=== PATIENT | male | born 1975 | race Caucasian/White ===

== ENCOUNTER 2017-06-07 11:30 | Inpatient (IN) | payer OTHER ==
[2017-06-07 12:19] LABS: Hematocrit 41 % (42-52); Hemoglobin 13.8 g/dl (14.0-18.0); Mean Corpuscular HGB Conc 34 g/dl (31-36); Mean Corpuscular Hemoglobin 28 pg (27-31); Mean Corpuscular Volume 81 fL (80-94); Mean Platelet Volume 7 um3 (7.4-10.4); Red Blood Count 5.03 10^6/ul (4.0-5.4); Red Cell Distribution Width 13 % (10.5-15); White Blood Count 6.2 10^3/ul (3.5-10.8)
[2017-06-07 12:23] LABS: Urine Bilirubin Negative (Negative); Urine Glucose Negative (Negative); Urine Nitrite Negative (Negative)
[2017-06-07 12:29] LABS: ALT 10 U/L (7-52); AST 16 U/L (13-39); Albumin 4.5 g/dL (3.2-5.2); Alkaline Phosphatase 49 U/L (34-104); Anion Gap 6 mmol/L (2-11); BUN/Creatinine Ratio 15.2 (8-20); Blood Urea Nitrogen 17 mg/dL (6-24); CO2 Carbon Dioxide 29 mmol/L (22-32); Calcium 8.9 mg/dL (8.6-10.3); Chloride 102 mmol/L (101-111); EGFR African American 93.9 (>60); Globulin 2.5 g/dL (2-4); Glucose 95 mg/dL (70-100); Potassium 3.7 mmol/L (3.5-5.0); Sodium 137 mmol/L (133-145)
--- NOTE | 2017-06-07 12:32 | ED ---
Psychiatric Complaint - HPI Summary HPI Summary: Patient presents with worsening depression and anxiety symptoms since leaving [facility] program. He has been dealing with anxiety and depression since grade school and has continually worsened. Mother is at bedtime and stating he has not gotten out of bed for several days. He notes to anxiety, depression, agorophobia, SI and recent self -harm (september) with cutting his throat. He takes Klonopin, Remeron, Trazodone, Suboxone, Cymbalta and Melatonin. Dr. Orantes is PCP and distributes his suboxone ([phone]) , Dr. Love ([phone] ) is psychiatrist. He has close follow up but felt this episode was too emergent. He would like some help and is here voluntarily - History Of Current Complaint Chief Complaint: [facility]entalHealth Time Seen by Provider: 06/07/17 11:40 Hx Obtained From: Patient Onset/Duration: Gradual Onset Timing: Constant Severity Initially: Severe Severity Currently: Severe Character: Depressed, Fearful, Anxious Aggravating Factor(s): Nothing Alleviating Factor(s): Medication, Counseling Associated Signs And Symptoms: Positive: Sleep Disturbance, Appetite Change, Social Withdrawal, Social Isolation Related History: Positive For: Prior Psychiatric Issues Has Suicidal: Reports: Thoughts, With A Plan - several plans, nothing today in particular - Risk Factor(s) Completed Suicide Risk Factors: Male, White [place] - Allergies/Home Medications Allergies/Adverse Reactions: Allergies Allergy/AdvReac Type Severity Reaction Status Date / Time No Known Allergies Allergy Verified 06/07/17 11:34 PMH/Surg Hx/FS Hx/Imm Hx Previously Healthy: Yes - Immunization History Hx Pertussis Vaccination: No Immunizations Up to Date: Unable to Obtain/Confirm Infectious Disease History: No Infectious Disease History: Denies: Traveled Outside the [place] in Last 30 Days - Social History Alcohol Use: None Substance Use Type: Reports: Prescribed, Other Substance Use Comment - Amount & Last Used: suboxone Smoking Status (MU): Never Smoked Tobacco Review of Systems Constitutional: Negative Eyes: Negative Cardiovascular: Negative Respiratory: Negative Positive: no symptoms reported, see HPI Positive: Arthralgia - chronic back pain Neurological: Negative Positive: Anxious, Depressed All Other Systems Reviewed And Are Negative: Yes Physical Exam Triage Information Reviewed: Yes Vital Signs On Initial Exam: Initial Vitals Temp Pulse Resp BP Pulse Ox 98 F 112 16 123/97 98 06/07/17 11:34 06/07/17 11:34 06/07/17 11:34 06/07/17 11:34 06/07/17 11:34 Vital Signs Reviewed: Yes Appearance: Positive: Well-Appearing, Well-Nourished Skin: Positive: Warm, Skin Color Reflects Adequate Perfusion Head/Face: Positive: Normal Head/Face Inspection Eyes: Positive: EOMI, YNES, Conjunctiva Clear Neck: Positive: Supple, No Lymphadenopathy Respiratory/Lung Sounds: Positive: Clear to Auscultation, Breath Sounds Present Cardiovascular: Positive: Normal, RRR, Pulses are Symmetrical in both Upper and Lower Extremities Musculoskeletal: Positive: Normal, Strength/ROM Intact Neurological: Positive: Sensory/Motor Intact, Alert, Oriented to Person Place, Time, Speech Normal Psychiatric: Positive: Normal AVPU Assessment: Alert - Katerin Coma Scale Coma Scale Total: 15 Diagnostics - Vital Signs Vital Signs Temp Pulse Resp BP Pulse Ox 06/07/17 11:51 99.8 F 92 20 111/69 97 06/07/17 11:34 98 F 112 16 123/97 98 - Laboratory Lab Results: Lab Results 06/07/17 06/07/17 Range/Units 12:00 12:00 WBC 6.2 (3.5-10.8) 10^3/ul RBC 5.03 (4.0-5.4) 10^6/ul Hgb 13.8 L (14.0-18.0) g/dl Hct 41 L (42-52) % MCV 81 (80-94) fL MCH 28 (27-31) pg MCHC 34 (31-36) g/dl RDW 13 (10.5-15) % Plt Count 206 (150-450) 10^3/ul MPV 7 L (7.4-10.4) um3 Neut % (Auto) 43.4 (38-83) % Lymph % (Auto) 43.7 (25-47) % [place] % (Auto) 9.4 H (1-9) % Eos % (Auto) 2.6 (0-6) % Baso % (Auto) 0.9 (0-2) % Absolute Neuts (auto) 2.7 (1.5-7.7) 10^3/ul Absolute Lymphs (auto) 2.7 (1.0-4.8) 10^3/ul Absolute Monos (auto) 0.6 (0-0.8) 10^3/ul Absolute Eos (auto) 0.2 (0-0.6) 10^3/ul Absolute Basos (auto) 0.1 (0-0.2) 10^3/ul Absolute Nucleated RBC 0.01 10^3/ul Nucleated RBC % 0.2 Urine Color Yellow Urine Appearance Clear Urine pH 5.0 (5-9) Ur Specific [place] 1.027 (1.010-1.030) Urine Protein Negative (Negative) Urine Ketones Negative (Negative) Urine Blood Negative (Negative) Urine Nitrate Negative (Negative) Urine Bilirubin Negative (Negative) Urine Urobilinogen Negative (Negative) Ur Leukocyte Esterase Negative (Negative) Urine Glucose Negative (Negative) Result Diagrams: 06/07/17 12:00 Lab Statement: Any lab studies that have been ordered have been reviewed, and results considered in the medical decision making process. Course/Dx - Course Course Of Treatment: Patient is evaluated for anxiety and depression. He denies any current pain. Endorses SI. Course of treatment includes [facility]. Patient sent to [facility] for eval. - Differential Dx/Clinical Impression Differential Diagnosis/HQI/PQRI: Positive: Anxiety, Suicide Attempt, Suicidal Ideation, Suicidal Gesture Provider Diagnosis: Suicidal ideation, Depression Discharge - Discharge Plan Condition: Stable Disposition: ADMITTED TO [facility] Discharge Disposition Comment: [facility]
[2017-06-07 12:37] LABS: Benzodiazepine Urine Screen None Detected (None Detect)
[2017-06-07 12:46] LABS: Acetaminophen < 15 mcg/mL; Alcohol < 10 mg/dL (<10); Salicylate < 2.50 mg/dL (<30)
[2017-06-07 12:51] LABS: TSH (Thyroid Stimulating Horm) 2.09 mcIU/mL (0.34-5.60)
[2017-06-07] MEDS ORDERED: Nicotine Inhaler* 10 MG AMP INH PRN (14:10)
[2017-06-07] MEDS ORDERED: Nicotine GUM* 2 MG PO PRN (14:10)
[2017-06-07] MEDS ORDERED: traZODone TAB* 100 MG PO SCH (21:00)
[2017-06-08] MEDS: Buprenorphine/Naloxone 8-2 MG SL TAB* 1 TAB PO SCH (08:33)
[2017-06-08] MEDS: DULoxetine DR CAP* 30 MG CAP.DR PO SCH (08:34)
--- NOTE | 2017-06-08 11:22 | HP ---
H&P (Free Text) History and Physical: HPI: ---- Patient is a 41yo male with PPHx significant for MDD, R, Panic disorder, Agoraphobia, Opioid use d/o, in Suboxone program, and Alcohol use d/o, sustained remission. Patient presents to the [facility] reporting worsening anxiety and depressive symptoms over the last 6 weeks since graduating from the [facility] inpatient rehab program. Patient reports frequency and intensity of panic attacks and worsening agoraphobic symptoms as well since leaving [facility] and moving home with his mom. Patient can not identify any possible triggers. He reports diminished mood, poor sleep, low energy, low motivation, crying spells, dropping interest in doing things that normally bring him pleasure, SI w/o plan, and agoraphobia symptoms including significant rise in anxiety when leaving is house, avoiding leaving the house, and recent periods of going days without leaving the house. 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 Patient has had 2 falls with head trauma and LOC. Patient reports his first occurred 5yrs ago when his dog went between his legs during a walk, patient reports he fell straight back striking the back of his head on concrete, unable to brace his fall with his arms. Patient reports his second occurred 3yrs ago due to an episode of Sciatic N. pain causing his leg to give and him fall. Patient reports striking the side of his head on a brick building with LOC. Patient reports since the last TBI, he has been told by family and friends that he is not as outgoing, has had a change in his sense of humor(less sarcastic), and no longer shows passion in playing music or pool. Patient reports hx of 3 suicide attempts, last in 09/2016 due to intractable panic patient cut his neck while shaving with a straight blade razor. This was patient's 2nd time attempting via cutting his neck, both requiring hospitalization. He reports compliance with his current psychotropic med regimen: Cymbalta, Remeron , Trazodone, and Klonopin, but admission UDS in (-) for Benzos. Will iSTOP. Patient is in Suboxone therapy currently with Dr. Orantes, will call to confirm with prescriber. Patient reports no current abuse of alcohol. Patient denies use of illicit substances. Patient reports no traumas in childhood. He reports no symptoms of psychosis, nor were any elicited on interview. Past Psych Hx: Inpt - Patient reports >10 admissions, including multiple admissions to [place] , [facility], and [facility]. His last was 1 year ago at [facility]. Outpt - Seen at [facility] Pt receive services at [facility].by psychiatrist - #[phone] and therapist - Maria Isabel Currently in Suboxone program of Dr. Orantes#[phone] for 6 weeks now. Patient receives outpt substance abuse therapy at [facility]. Psychotropic med hx - Cymbalts, Remeron, Trazodone, Klonopin, Xanax Suicide attempt Hx / SIB Hx: Patient reports 3 suicide attempts, last in 09/2016 due to intractable panic patient cut his neck while shaving with a straight blade razor. This was patient 's 2nd time attempting via cutting his neck, both requiring hospitalization. Patient graduated from the [facility] inpatient rehab program 6 weeks ago, for opioid and alcohol use d/o issues. Patient is in Suboxone therapy currently with Dr. Orantes. Patient receives outpt substance abuse therapy at [facility]. Substance Hx: Patient reports no current abuse of alcohol. Patient reports last abuse at 30yo. 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 Patient reports he was started Opioid pain pills due to chronic back pain over 10yrs ago. He reports in early 2015 his doctor's office was shutdown and he stopped. Patient reports months later he was introduced to snorting heroin by a friend who also had severe back pain. He reports he very quickly went to daily use and then to increasing money towards getting the drug, then to stealing from his family to get the drug. Patient reports he never did IV heroin. He reports interventions from his family got him into the [facility] detox center and from there he was admitted to [facility] and graduated from that program 6 weeks ago. Patient reports he has been in the Suboxone program of Dr. Orantes#[phone] for 6 weeks now. Patient denies use of other illicit substances. Medical Hx: -Chronic back pain -TBI in 2013 and 2011 s/p falls with head trauma and LOC. Patient reports ED presentations for both and (-)CTs for both. -Klonopin w/d seizure hx Allergies: --------- NKDA Family Hx: -Patient reports mom and many on mom's side of the family have anxiety disorders and many are agoraphobic. -Patient reports dad and many on dad's side of the family have severe alcohol use disorder symptoms. -Patient reports no knowledge of anyone on mom or dad's side of the family attempting or completing suicide. 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 -Currently unemployed -On disability -Lives with his mother -Reports no firearms in the home -Reports no stockpiles of old pills in the home VITALS: Vital Signs (72 hours) 06/07/17 06/07/17 06/07/17 11:34 11:51 14:08 Temperature 98 F 99.8 F 98.2 F Pulse Rate 112 92 85 Respiratory 16 20 16 Rate Blood Pressure 123/97 111/69 140/80 (mmHg) O2 Sat by Pulse 98 97 Oximetry 06/07/17 06/07/17 06/07/17 15:59 16:41 19:27 Temperature 97.7 F 97.7 F Pulse Rate 89 89 Respiratory 16 16 Rate Blood Pressure 124/85 124/85 (mmHg) O2 Sat by Pulse 99 99 Oximetry 06/08/17 06/08/17 06/08/17 07:48 08:33 10:33 Temperature 97.5 F Pulse Rate 64 Respiratory 15 16 16 Rate Blood Pressure 88/63 (mmHg) O2 Sat by Pulse 99 Oximetry 06/08/17 06/08/17 21:13 21:15 Temperature Pulse Rate 90 Respiratory 18 Rate Blood Pressure 117/78 (mmHg) O2 Sat by Pulse 100 Oximetry LABS: ----- Laboratory Tests 06/07/17 06/07/17 06/07/17 12:00 12:00 12:00 WBC 6.2 RBC 5.03 Hgb 13.8 L Hct 41 L MCV 81 MCH 28 MCHC 34 RDW 13 Plt Count 206 MPV 7 L Neut % (Auto) 43.4 Lymph % (Auto) 43.7 [place] % (Auto) 9.4 H Eos % (Auto) 2.6 Baso % (Auto) 0.9 Absolute Neuts (auto) 2.7 Absolute Lymphs (auto) 2.7 Absolute Monos (auto) 0.6 Absolute Eos (auto) 0.2 Absolute Basos (auto) 0.1 Absolute Nucleated RBC 0.01 Nucleated RBC % 0.2 Sodium 137 Potassium 3.7 Chloride 102 Carbon Dioxide 29 Anion Gap 6 BUN 17 Creatinine 1.12 Est GFR ( Amer) 93.9 Est GFR (Non-Af Amer) 73.0 BUN/Creatinine Ratio 15.2 Glucose 95 Calcium 8.9 Total Bilirubin 0.40 AST 16 ALT 10 Alkaline Phosphatase 49 Total Protein 7.0 Albumin 4.5 Globulin 2.5 Albumin/Globulin Ratio 1.8 TSH 2.09 Urine Color Yellow Urine Appearance Clear Urine pH 5.0 Ur Specific [place] 1.027 Urine Protein Negative Urine Ketones Negative Urine Blood Negative Urine Nitrate Negative Urine Bilirubin Negative Urine Urobilinogen Negative Ur Leukocyte Esterase Negative Urine Glucose Negative Salicylates < 2.50 Urine Opiates Screen Acetaminophen < 15 Ur Barbiturates Screen Ur Phencyclidine Scrn Ur Amphetamines Screen U Benzodiazepines Scrn Urine Cocaine Screen U Cannabinoids Screen Serum Alcohol < 10 06/07/17 12:00 WBC RBC Hgb Hct MCV MCH MCHC RDW Plt Count MPV Neut % (Auto) Lymph % (Auto) [place] % (Auto) Eos % (Auto) Baso % (Auto) Absolute Neuts (auto) Absolute Lymphs (auto) Absolute Monos (auto) Absolute Eos (auto) Absolute Basos (auto) Absolute Nucleated RBC Nucleated RBC % Sodium Potassium Chloride Carbon Dioxide Anion Gap BUN Creatinine Est GFR ( Amer) Est GFR (Non-Af Amer) BUN/Creatinine Ratio Glucose Calcium Total Bilirubin AST ALT Alkaline Phosphatase Total Protein Albumin Globulin Albumin/Globulin Ratio TSH Urine Color Urine Appearance Urine pH Ur Specific [place] Urine Protein Urine Ketones Urine Blood Urine Nitrate Urine Bilirubin Urine Urobilinogen Ur Leukocyte Esterase Urine Glucose Salicylates Urine Opiates Screen None detected Acetaminophen Ur Barbiturates Screen None detected Ur Phencyclidine Scrn None detected Ur Amphetamines Screen None detected U Benzodiazepines Scrn None detected Urine Cocaine Screen None detected U Cannabinoids Screen None detected Serum Alcohol PHYSICAL EXAM: GEN - thin build male, in NAD, looks stated age, multiple skin tattoos including face, neck and hands HEENT - NC/AT, EOEMI, no lesions or discharge noted, conjunctivae clear NECK - supple, no JVD, no LAD, CARDIAC - S1/S2, no discernable murmurs ABD - (+) BS x 4 quad, non-tender EXT - no edema, no lesions MUSCULOSKEL - 5/5 muscle strength in all extremities SKIN - intact, no lesions NEURO - CN 2-12, steady gait MSE: ----- Appearance - thin build male, facial, neck and hand tattoos, fair hygeine, in NAD Behavior - calm, cooperative Speech - RVR, prosody wnl Eye Contact - good Mood - "anxious" Affect - anxious TP - linear and GD TC - treating anxiety Perception - no signs of psychosis noted or reported Orientation - A&Ox3 Cognition - intact Insight - poor to fair Judgement - poor to fair SI / HI - SI present on admission, currently denies both ASSESSMENT: 1. MDD, R, S w/o PFs 2. Panic disorder 3. Agoraphobia 4. Opioid use d/o, in Suboxone program 5. Alcohol use d/o, sustained remission PLAN: ------ 1. Continue admission to [facility] for safety and symptom mx. 2. Continue Cymbalta at increased dose of 90mg po qdaily for mood / anxiety. 3. Re-start home Klonopin 0.5mg po BID. Patient has hx of withdrawal seizure. Patient currently does not have Benzos in urine, but he reports recent use. 4. iSTOP patient. 5. Patient is in Suboxone therapy currently with Dr. Orantes, will call to confirm with prescriber. Continue home dose Suboxone 8mg SL daily. 6. Re-start home Remeron 30mg po qhs as patient reports it has benefitted his anxiety. 7. Re-start home Trazodone at 150mg po qhs for recent worsening insomnia while on 100mg qhs dose. 8. Continue compiling collateral information from family and outpt MH providers. 9. Patient to participate in milieu activities and groups.
[2017-06-08] MEDS: traZODone TAB* 100 MG PO SCH (21:15)
[2017-06-08] MEDS: clonazePAM TAB(*) 0.5 MG PO SCH (21:15)
[2017-06-08] MEDS: Mirtazapine TAB* 15 MG PO SCH (21:17)
[2017-06-09] MEDS: DULoxetine DR CAP* 30 MG CAP.DR PO SCH (09:11)
[2017-06-09] MEDS: Buprenorphine/Naloxone 8-2 MG SL TAB* 1 TAB PO SCH (09:12)
[2017-06-09] MEDS: clonazePAM TAB(*) 0.5 MG PO SCH (09:12)
--- NOTE | 2017-06-09 17:07 | PN ---
Subjective - Subjective Service Type: [id number] Hosp care 15 min low complexity Subjective: Patient in his bed sitting up on my approach. He reports increased acuity milieu prompted his retreat to his room. Patient reports participation in some groups. He reports anxiety is unchanged from admission. Patient reports med compliance with no s/e's. He reports sleep and appetite are wnl. Patient denies SI/HI and AH/VH. Objective - Appearance Appearance: Well Developed/Nourished, Thin Framed Dysmorphic Features: No Hygiene: Normal Grooming: Well Kept - Behavior Psychomotor Activities: Normal Exhibits Abnormal Movement: No - Attitude and Relatedness Attitude and Relatedness: Cooperative Eye Contact: Poor - Speech Quality: Unpressured Latencies: Normal Quantity: Terse - Mood Patient's Decription of Mood: "Anxious" - Affect Observed Affect: Tense Affect Consistent with: Dysphoria - Thought Process Patient's Thought Process: Coherent Thought Content: No Passive Wish, No Suicidal Planning, No Homicidal Ideation, No Paranoid Ideation - Sensorium Experiencing Hallucinations: No, Sensorium is Clear Type of Hallucinations: Visual: No, Auditory: No, Command: No - Level of Consciousness Level of Consciousness: Alert Orientation: Yes Intact, Yes Orientated to Time, Yes Orientated to Place, Yes Orientated to Person - Impulse Control Impulse Control: Intact - Insight and Judgement Insight and Judgement: Fair - Group Participation Particating in Group Activities: Yes - Medication Management Medication Management Adherence: Yes Assessment - Assessment Inpatient DSM-IV Dx: 1. MDD, R, S w/o PFs. 2. Panic disorder. 3. Agoraphobia. 4. Opioid use d/o, in Suboxone program. 5. Alcohol use d/o, sustained remission. 9. Patient to participate in milieu activities and groups. Plan - Plan Treatment Plan: Name: ANTONIO KENNEDY Birthdate: 1975 [id number] PLAN: ------ 1. Continue admission to [facility] for safety and symptom mx. 2. Continue Cymbalta at increased dose of 90mg po qdaily for mood / anxiety. 3. Increase Klonopin from 0.5mg to 1mg po BID. Patient has hx of withdrawal seizure. Patient currently does not have Benzos in urine, but he reports recent use. 4. iSTOP patient. 5. Patient is in Suboxone therapy currently with Dr. Orantes, will call to confirm with prescriber. Continue home dose Suboxone 8mg SL daily. 6. Continue Remeron 30mg po qhs as patient reports it has benefitted his anxiety. 7. Continue Trazodone at 150mg po qhs for recent worsening insomnia while on 100mg qhs dose at home. 8. Continue compiling collateral information from family and outpt providers. Medications: Current Medications Buprenorphine/Naloxone (Suboxone 8-2 Mg Sl Tab*) 1 tab.sl PO DAILY [facility] Last Admin: 06/09/17 09:12 Dose: 1 tab.sl Clonazepam (Klonopin Tab(*)) 0.5 mg PO BID [facility] Last Admin: 06/09/17 09:12 Dose: 0.5 mg Duloxetine HCl (Cymbalta Cap*) 90 mg PO DAILY [facility] Last Admin: 06/09/17 09:11 Dose: 90 mg Mirtazapine (Remeron Tab*) 30 mg PO BEDTIME [facility] Last Admin: 06/08/17 21:17 Dose: 30 mg Nicotine (Nicotine Inhaler*) 10 mg INH Q2H PRN PRN Reason: CRAVING Nicotine Polacrilex (Nicotine Gum*) 2 mg PO Q2H PRN PRN Reason: CRAVING Trazodone HCl (Desyrel Tab*) 150 mg PO BEDTIME [facility] Last Admin: 06/08/17 21:15 Dose: 150 mg - Discharge Plan Discharge Plan: Outpatient Follow Up
[2017-06-09] MEDS: Mirtazapine TAB* 15 MG PO SCH (20:30)
[2017-06-09] MEDS: traZODone TAB* 100 MG PO SCH (20:31)
[2017-06-09] MEDS: clonazePAM TAB(*) 1 MG PO SCH (20:35)
[2017-06-10] MEDS: clonazePAM TAB(*) 1 MG PO SCH ×2 (08:15→20:06)
[2017-06-10] MEDS: Buprenorphine/Naloxone 8-2 MG SL TAB* 1 TAB PO SCH (08:15)
[2017-06-10] MEDS: DULoxetine DR CAP* 30 MG CAP.DR PO SCH (08:16)
--- NOTE | 2017-06-10 16:49 | PN ---
Subjective - Subjective Service Type: 51802 Hosp care 15 min low complexity Subjective: Patient resting in his room. Says he's currently avoiding the milieu due to anxiety. Denies current SI, feels safe on the unit. Denies current complaints. Objective - Appearance Appearance: Well Developed/Nourished Dysmorphic Features: No Hygiene: Normal Grooming: Well Kept - Behavior Psychomotor Activities: Normal Exhibits Abnormal Movement: No - Attitude and Relatedness Attitude and Relatedness: Cooperative Eye Contact: Fair - Speech Quality: Unpressured Latencies: Normal Quantity: Appropriate - Mood Patient's Decription of Mood: "Anxious" - Affect Observed Affect: Constricted Affect Consistent with: Dysphoria - Thought Process Patient's Thought Process: Coherent Thought Content: No Passive Wish, No Suicidal Planning, No Homicidal Ideation, No Paranoid Ideation - Sensorium Experiencing Hallucinations: No, Sensorium is Clear Type of Hallucinations: Visual: No, Auditory: No, Command: No - Level of Consciousness Level of Consciousness: Alert Orientation: Yes Intact, Yes Orientated to Time, Yes Orientated to Place, Yes Orientated to Person - Impulse Control Impulse Control: Tenuous - Insight and Judgement Insight and Judgement: Fair - Group Participation Particating in Group Activities: Yes - Medication Management Medication Management Adherence: Yes Assessment - Assessment Merits Inpatient Hospitalization: For Immediate Safety, For Stabilization Inpatient DSM-IV Dx: 1. MDD, R, S w/o PFs. 2. Panic disorder. 3. Agoraphobia. 4. Opioid use d/o, in Suboxone program. 5. Alcohol use d/o, sustained remission. 9. Patient to participate in milieu activities and groups. Clinical Impression: 41 y.o. white male with a history of MDD, panic do and agoraphobia, along with opioid use disorder admitted for worsening anxiety and passive SI. Plan - Plan Treatment Plan: Name: ANTONIO KENNEDY Birthdate: 1975 [id number] Patient on suboxone, mirtazapine, duloxetine, trazodone and clonazepam therapies. Continue inpatient treatment. Continued Medication Management: Different Medication Medications: Current Medications Buprenorphine/Naloxone (Suboxone 8-2 Mg Sl Tab*) 1 tab.sl PO DAILY [facility] Last Admin: 06/10/17 08:15 Dose: 1 tab.sl Clonazepam (Klonopin Tab(*)) 1 mg PO BID [facility] Last Admin: 06/10/17 08:15 Dose: 1 mg Duloxetine HCl (Cymbalta Cap*) 90 mg PO DAILY [facility] Last Admin: 06/10/17 08:16 Dose: 90 mg Mirtazapine (Remeron Tab*) 30 mg PO BEDTIME [facility] Last Admin: 06/09/17 20:30 Dose: 30 mg Nicotine (Nicotine Inhaler*) 10 mg INH Q2H PRN PRN Reason: CRAVING Nicotine Polacrilex (Nicotine Gum*) 2 mg PO Q2H PRN PRN Reason: CRAVING Trazodone HCl (Desyrel Tab*) 150 mg PO BEDTIME [facility] Last Admin: 06/09/17 20:31 Dose: 150 mg - Discharge Plan Discharge Plan: Inpatient Hospitalization
[2017-06-10] MEDS: Mirtazapine TAB* 15 MG PO SCH (20:05)
[2017-06-10] MEDS: traZODone TAB* 100 MG PO SCH (20:06)
[2017-06-11] MEDS: clonazePAM TAB(*) 1 MG PO SCH ×2 (08:18→20:13)
[2017-06-11] MEDS: DULoxetine DR CAP* 30 MG CAP.DR PO SCH (08:18)
[2017-06-11] MEDS: Buprenorphine/Naloxone 8-2 MG SL TAB* 1 TAB PO SCH (08:18)
[2017-06-11] MEDS: Mirtazapine TAB* 15 MG PO SCH (20:12)
[2017-06-11] MEDS: traZODone TAB* 100 MG PO SCH (20:12)
[2017-06-12] MEDS: clonazePAM TAB(*) 1 MG PO SCH ×2 (08:26→20:31)
[2017-06-12] MEDS: DULoxetine DR CAP* 30 MG CAP.DR PO SCH (08:26)
[2017-06-12] MEDS: Buprenorphine/Naloxone 8-2 MG SL TAB* 1 TAB PO SCH (08:26)
--- NOTE | 2017-06-12 11:19 | PN ---
Subjective - Subjective Service Type: [id number] Hosp care 15 min low complexity Subjective: Patient lying in his bed on my approach. Patient reports benefit to his anxiety on current psychotropic med regimen. Patient reports sleep and appetite are wnl. Patient reports compliance with groups, but reports the acuity of the milieu drives him to his room. Patient denies SI/HI and AH/VH. Patient denies med s/e's. Objective - Appearance Appearance: Thin Framed Dysmorphic Features: No Hygiene: Normal Grooming: Well Kept - Behavior Psychomotor Activities: Normal Exhibits Abnormal Movement: No - Attitude and Relatedness Attitude and Relatedness: Cooperative Eye Contact: Fair - Speech Quality: Unpressured Latencies: Normal Quantity: Appropriate - Mood Patient's Decription of Mood: "Anxious" - Affect Observed Affect: Fair Affect Consistent with: Euthymia - Thought Process Patient's Thought Process: Coherent Thought Content: No Passive Wish, No Suicidal Planning, No Homicidal Ideation, No Paranoid Ideation - Sensorium Experiencing Hallucinations: No, Sensorium is Clear Type of Hallucinations: Visual: No, Auditory: No, Command: No - Level of Consciousness Level of Consciousness: Alert Orientation: Yes Intact, Yes Orientated to Time, Yes Orientated to Place, Yes Orientated to Person - Impulse Control Impulse Control: Intact - Insight and Judgement Insight and Judgement: Fair - Group Participation Particating in Group Activities: Yes - Medication Management Medication Management Adherence: Yes Assessment - Assessment Merits Inpatient Hospitalization: For Immediate Safety, For Stabilization Inpatient DSM-IV Dx: 1. MDD, R, S w/o PFs. 2. Panic disorder. 3. Agoraphobia. 4. Opioid use d/o, in Suboxone program. 5. Alcohol use d/o, sustained remission. 9. Patient to participate in milieu activities and groups. Plan - Plan Treatment Plan: Name: ANTONIO KENNEDY Birthdate: 1975 [id number] PLAN: ------ 1. Continue admission to [facility] for safety and symptom mx. 2. Continue Cymbalta at increased dose of 90mg po qdaily for mood / anxiety. 3. Continue Klonopin 1mg po BID. Patient has hx of withdrawal seizure. Patient currently does not have Benzos in urine, but he reports recent use. 4. iSTOP patient. 5. Continue home dose Suboxone 8mg SL daily. Patient is in Suboxone therapy currently with Dr. Orantes. 6. Continue Remeron 30mg po qhs as patient reports it has benefitted his anxiety. 7. Continue Trazodone at 150mg po qhs for recent worsening insomnia while on 100mg qhs dose at home. 8. Continue compiling collateral information from family and outpt providers. Medications: Current Medications Buprenorphine/Naloxone (Suboxone 8-2 Mg Sl Tab*) 1 tab.sl PO DAILY [facility] Last Admin: 06/12/17 08:26 Dose: 1 tab.sl Clonazepam (Klonopin Tab(*)) 1 mg PO BID [facility] Last Admin: 06/12/17 08:26 Dose: 1 mg Duloxetine HCl (Cymbalta Cap*) 90 mg PO DAILY [facility] Last Admin: 06/12/17 08:26 Dose: 90 mg Mirtazapine (Remeron Tab*) 30 mg PO BEDTIME [facility] Last Admin: 06/11/17 20:12 Dose: 30 mg Nicotine (Nicotine Inhaler*) 10 mg INH Q2H PRN PRN Reason: CRAVING Nicotine Polacrilex (Nicotine Gum*) 2 mg PO Q2H PRN PRN Reason: CRAVING Trazodone HCl (Desyrel Tab*) 150 mg PO BEDTIME [facility] Last Admin: 06/11/17 20:12 Dose: 150 mg - Discharge Plan Discharge Plan: Outpatient Follow Up
--- NOTE | 2017-06-12 11:54 | PN ---
MHU: Group Therapy Note - Service Type Service Type: [id number] Group Psychotherapy - Cognitive Behavioral Group Therapy ( CBT):Patient was attentive and participatory in CBT programming this morning, and remained in good behavioral control. Patient expressed positive insights regarding relevant treatment interventions and goals.
[2017-06-12] MEDS: diPHENhydraMINE PO* 50 MG PO SCH (20:30)
[2017-06-12] MEDS: traZODone TAB* 100 MG PO SCH (20:30)
[2017-06-12] MEDS: Mirtazapine TAB* 15 MG PO SCH (20:31)
[2017-06-13] MEDS: DULoxetine DR CAP* 30 MG CAP.DR PO SCH (08:24)
[2017-06-13] MEDS: clonazePAM TAB(*) 1 MG PO SCH ×2 (08:24→20:41)
[2017-06-13] MEDS: Buprenorphine/Naloxone 8-2 MG SL TAB* 1 TAB PO SCH (08:24)
[2017-06-13] MEDS ORDERED: DULoxetine DR CAP* 60 MG CAP.DR PO SCH (11:00)
--- NOTE | 2017-06-13 11:21 | PN ---
Subjective - Subjective Service Type: 17138 Hosp care 15 min low complexity Subjective: Patient again lying in his bed on my approach. He reports improving anxiety but reports ongoing issues socializing in the milieu. Patient reports he did go to every group today and reports gaining beneficial insights on his anxiety and understanding how anxiety paralyzes. Patient is amenable to an increase in Duloxetine. Patient informed 120mg po daily is the max dose for this med. Patient reports med compliance and denies med s/e's. Patient reports no DUKE, CP, Abd pain. He reports urination and bowel movements are wnl. Patient reports ongoing improving mood. He again denies SI/HI and AH/VH. Appetite and sleep are fair. Objective - Appearance Appearance: Thin Framed Dysmorphic Features: No Hygiene: Normal Grooming: Fairly Well Kept - Behavior Psychomotor Activities: Normal Exhibits Abnormal Movement: No - Attitude and Relatedness Attitude and Relatedness: Cooperative Eye Contact: Fair - Speech Quality: Unpressured Latencies: Normal Quantity: Appropriate - Mood Patient's Decription of Mood: "Anxious" - Affect Observed Affect: Fair Affect Consistent with: Euthymia - Thought Process Patient's Thought Process: Coherent Thought Content: No Passive Wish, No Suicidal Planning, No Homicidal Ideation, No Paranoid Ideation - Sensorium Experiencing Hallucinations: No, Sensorium is Clear Type of Hallucinations: Visual: No, Auditory: No, Command: No - Level of Consciousness Level of Consciousness: Alert Orientation: Yes Intact, Yes Orientated to Time, Yes Orientated to Place, Yes Orientated to Person - Impulse Control Impulse Control: Intact - Insight and Judgement Insight and Judgement: Fair - Group Participation Particating in Group Activities: Yes - Medication Management Medication Management Adherence: Yes Assessment - Assessment Merits Inpatient Hospitalization: For Immediate Safety, For Stabilization Inpatient DSM-IV Dx: 1. MDD, R, S w/o PFs. 2. Panic disorder. 3. Agoraphobia. 4. Opioid use d/o, in Suboxone program. 5. Alcohol use d/o, sustained remission. 9. Patient to participate in milieu activities and groups. Plan - Plan Treatment Plan: Name: ANTONIO KENNEDY Birthdate: 1975 [id number] PLAN: ------ 1. Continue admission to [facility] for safety and symptom mx. 2. Increase Cymbalta from 90mg to max dose of 120mg po qdaily for mood / anxiety. 3. Continue Klonopin 1mg po BID. Patient has hx of withdrawal seizure. Patient currently does not have Benzos in urine, but he reports recent use. 4. iSTOP patient. 5. Continue home dose Suboxone 8mg SL daily. Patient is in Suboxone therapy currently with Dr. Orantes. 6. Continue Remeron 30mg po qhs as patient reports it has benefitted his anxiety. 7. Continue Trazodone at 150mg po qhs for recent worsening insomnia while on 100mg qhs dose at home. 8. Continue compiling collateral information from family and outpt providers. Medications: Current Medications Buprenorphine/Naloxone (Suboxone 8-2 Mg Sl Tab*) 1 tab.sl PO DAILY [facility] Last Admin: 06/13/17 08:24 Dose: 1 tab.sl Clonazepam (Klonopin Tab(*)) 1 mg PO BID [facility] Last Admin: 06/13/17 08:24 Dose: 1 mg Diphenhydramine HCl (Benadryl Po*) 50 mg PO BEDTIME [facility] Last Admin: 06/12/17 20:30 Dose: 50 mg Duloxetine HCl (Cymbalta Cap*) 120 mg PO DAILY [facility] Mirtazapine (Remeron Tab*) 30 mg PO BEDTIME [facility] Last Admin: 06/12/17 20:31 Dose: 30 mg Nicotine (Nicotine Inhaler*) 10 mg INH Q2H PRN PRN Reason: CRAVING Last Admin: 06/12/17 10:40 Dose: 10 mg Nicotine Polacrilex (Nicotine Gum*) 2 mg PO Q2H PRN PRN Reason: CRAVING Last Admin: 06/12/17 10:40 Dose: 2 mg Trazodone HCl (Desyrel Tab*) 150 mg PO BEDTIME [facility] Last Admin: 06/12/17 20:30 Dose: 150 mg - Discharge Plan Discharge Plan: Outpatient Follow Up
--- NOTE | 2017-06-13 13:06 | PN ---
MHU: Group Therapy Note - Service Type Service Type: [id number] Group Psychotherapy - Cognitive Behavioral Group Therapy ( CBT):Patient was attentive and participatory in CBT programming this morning, and remained in good behavioral control. Patient expressed positive insights regarding relevant treatment interventions and goals.
[2017-06-13] MEDS: diPHENhydraMINE PO* 50 MG PO SCH (20:40)
[2017-06-13] MEDS: Mirtazapine TAB* 15 MG PO SCH (20:40)
[2017-06-13] MEDS: traZODone TAB* 100 MG PO SCH (20:41)
[2017-06-14] MEDS: clonazePAM TAB(*) 1 MG PO SCH (08:37)
[2017-06-14] MEDS: Buprenorphine/Naloxone 8-2 MG SL TAB* 1 TAB PO SCH (08:37)
[2017-06-14 10:07] VITALS: BP 108/70
--- NOTE | 2017-06-14 11:40 | PN ---
MHU: Group Therapy Note - Service Type Service Type: [id number] Group Psychotherapy - Cognitive Behavioral Group Therapy ( CBT):Patient was attentive and participatory in CBT programming this morning, and remained in good behavioral control. Patient expressed positive insights regarding relevant treatment interventions and goals.
--- NOTE | 2017-06-14 14:13 | DS ---
Subjective - Subjective Service Types: [id number] Hosp DC Day Mgmt simple under 30 min Subjective: Patient noted to be more visible today in the milieu. Patient noted to be social with peers and attended some groups. Patient reports ongoing improved anxiety. He reports no panic attacks since admission. Patient reports good benefit on current med regimen, he denies med s/e's. Patient reports feeling ready for discharge. Patient is A&Ox4, linear and GD in TP, and future oriented in TC. Patient reports interest in increasing the time he spends with friends and out socializing. Patient again denies SI/ HI and AH/VH. Patient is psychiatrically stable. Discharge plan has been discussed and patient is amenable and acknowledges understanding. Patient instructed to call the crisis hotline, 911, or self present to a local ED if SI recurs. Patient was amenable and acknowledged understanding of family and community supports. Patient will be discharged by cab to his mother's home. Mom reports she feels comfortable with patient discharging back to her home. Objective - Appearance Appearance: Thin Framed Dysmorphic Features: No Hygiene: Normal Grooming: Fairly Well Kept - Behavior Psychomotor Activities: Normal Exhibits Abnormal Movement: No - Attitude and Relatedness Attitude and Relatedness: Cooperative Eye Contact: Fair - Speech Quality: Unpressured Latencies: Normal Quantity: Appropriate - Mood Patient's Decription of Mood: "Okay" - Affect Observed Affect: Fair Affect Consistent with: Euthymia - Thought Process Patient's Thought Process: Coherent Thought Content: No Passive Wish, No Suicidal Planning, No Homicidal Ideation, No Paranoid Ideation - Sensorium Experiencing Hallucinations: No, Sensorium is Clear Type of Hallucinations: Visual: No, Auditory: No, Command: No - Level of Consciousness Level of Consciousness: Alert Orientation: Yes Intact, Yes Orientated to Time, Yes Orientated to Place, Yes Orientated to Person - Impulse Control Impulse Control: Intact - Insight and Judgement Insight and Judgement: Fair - Group Participation Particating in Group Activities: Yes - Medication Management Medication Management Adherence: Yes Treatment Course & Assessment Clinical Course & Impression: HOSPITAL COURSE: Patient is a 41yo male with PPHx significant for MDD, R, Panic disorder, Agoraphobia, Opioid use d/o, in Suboxone program, and Alcohol use d/o, sustained remission. Patient presents to the [facility] reporting worsening anxiety and depressive symptoms over the last 6 weeks since graduating from the [facility] inpatient rehab program. Patient reports frequency and intensity of panic attacks and worsening agoraphobic symptoms as well since leaving [facility] and moving home with his mom. Patient can not identify any possible triggers. He reports diminished mood, poor sleep, low energy, low motivation, crying spells, dropping interest in doing things that normally bring him pleasure, SI w/o plan, and agoraphobia symptoms including significant rise in anxiety when leaving is house, avoiding leaving the house, and recent periods of going days without leaving the house. 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 Patient has had 2 falls with head trauma and LOC. Patient reports his first occurred 5yrs ago when his dog went between his legs during a walk, patient reports he fell straight back striking the back of his head on concrete, unable to brace his fall with his arms. Patient reports his second occurred 3yrs ago due to an episode of Sciatic N. pain causing his leg to give and him fall. Patient reports striking the side of his head on a brick building with LOC. Patient reports since the last TBI, he has been told by family and friends that he is not as outgoing, has had a change in his sense of humor(less sarcastic), and no longer shows passion in playing music or pool. Patient reports hx of 3 suicide attempts, last in 09/2016 due to intractable panic patient cut his neck while shaving with a straight blade razor. This was patient's 2nd time attempting via cutting his neck, both requiring hospitalization. He reports compliance with his current psychotropic med regimen: Cymbalta, Remeron , Trazodone, and Klonopin. Patient is in Suboxone therapy currently with Dr. Orantes, will call to confirm with prescriber. Patient reports no current abuse of alcohol. Patient denies use of illicit substances. Patient reports no traumas in childhood. He reports no symptoms of psychosis, nor were any elicited on interview. On admission, patient's home dose Cymbalta was increased from 60mg to 90mg po qdaily for mood / anxiety. Home dose Klonopin 0.5mg po BID was continued. Patient has Patient is in Suboxone therapy currently with Dr. Orantes, and home dose Suboxone 8mg SL daily was continued. Home dose Remeron 30mg po qhs and Trazodone were re-started. Trazodone was re-started at 150mg po qhs for recent worsening insomnia while on home dose of 100mg. Patient noted to display agoraphobic symptoms on admission day 1. Clonazepam was increased from 0.5 po BID to 1mg po BID for those symptoms and to facility engagement in therapy. Patient's anxiety improved daily. On admission day 5, patient's Cymbalta increased from 90mg to max dose 120mg po daily for anxiety/mood. Patient showed increased participation in groups, was noted to be visible in the milieu more, and noted to be more social following. On day of discharge, patient reported ongoing improved anxiety. He reports no panic attacks since admission. Patient reports good benefit on current med regimen, he denies med s/e's. Patient reports feeling ready for discharge. Patient is A&Ox4, linear and GD in TP, and future oriented in TC. Patient reports interest in increasing the time he spends with friends and out socializing. Patient again denies SI/ HI and AH/VH. Patient is psychiatrically stable. Discharge plan has been discussed and patient is amenable and acknowledges understanding. Patient instructed to call the crisis hotline, 911, or self present to a local ED if SI recurs. Patient was amenable and acknowledged understanding of family and community supports. Patient will be discharged by cab to his mother's home. Mom reports she feels comfortable with patient discharging back to her home. PERTINENT LABS: Laboratory Tests 06/07/17 06/07/17 06/07/17 12:00 12:00 12:00 WBC 6.2 RBC 5.03 Hgb 13.8 L Hct 41 L MCV 81 MCH 28 MCHC 34 RDW 13 Plt Count 206 MPV 7 L Neut % (Auto) 43.4 Lymph % (Auto) 43.7 [place] % (Auto) 9.4 H Eos % (Auto) 2.6 Baso % (Auto) 0.9 Absolute Neuts (auto) 2.7 Absolute Lymphs (auto) 2.7 Absolute Monos (auto) 0.6 Absolute Eos (auto) 0.2 Absolute Basos (auto) 0.1 Absolute Nucleated RBC 0.01 Nucleated RBC % 0.2 Sodium 137 Potassium 3.7 Chloride 102 Carbon Dioxide 29 Anion Gap 6 BUN 17 Creatinine 1.12 Est GFR ( Amer) 93.9 Est GFR (Non-Af Amer) 73.0 BUN/Creatinine Ratio 15.2 Glucose 95 Calcium 8.9 Total Bilirubin 0.40 AST 16 ALT 10 Alkaline Phosphatase 49 Total Protein 7.0 Albumin 4.5 Globulin 2.5 Albumin/Globulin Ratio 1.8 TSH 2.09 Urine Color Yellow Urine Appearance Clear Urine pH 5.0 Ur Specific [place] 1.027 Urine Protein Negative Urine Ketones Negative Urine Blood Negative Urine Nitrate Negative Urine Bilirubin Negative Urine Urobilinogen Negative Ur Leukocyte Esterase Negative Urine Glucose Negative Salicylates < 2.50 Urine Opiates Screen Acetaminophen < 15 Ur Barbiturates Screen Ur Phencyclidine Scrn Ur Amphetamines Screen U Benzodiazepines Scrn Urine Cocaine Screen U Cannabinoids Screen Serum Alcohol < 10 06/07/17 12:00 WBC RBC Hgb Hct MCV MCH MCHC RDW Plt Count MPV Neut % (Auto) Lymph % (Auto) [place] % (Auto) Eos % (Auto) Baso % (Auto) Absolute Neuts (auto) Absolute Lymphs (auto) Absolute Monos (auto) Absolute Eos (auto) Absolute Basos (auto) Absolute Nucleated RBC Nucleated RBC % Sodium Potassium Chloride Carbon Dioxide Anion Gap BUN Creatinine Est GFR ( Amer) Est GFR (Non-Af Amer) BUN/Creatinine Ratio Glucose Calcium Total Bilirubin AST ALT Alkaline Phosphatase Total Protein Albumin Globulin Albumin/Globulin Ratio TSH Urine Color Urine Appearance Urine pH Ur Specific [place] Urine Protein Urine Ketones Urine Blood Urine Nitrate Urine Bilirubin Urine Urobilinogen Ur Leukocyte Esterase Urine Glucose Salicylates Urine Opiates Screen None detected Acetaminophen Ur Barbiturates Screen None detected Ur Phencyclidine Scrn None detected Ur Amphetamines Screen None detected U Benzodiazepines Scrn None detected Urine Cocaine Screen None detected U Cannabinoids Screen None detected Serum Alcohol Consultants: none Discharge Meds: Home Medications Medication Instructions Recorded Confirmed Type Buprenorphine/Naloxone SL TAB* 1 tab.sl PO DAILY tab.sl MDD 8-2 06/14/17 Rx [Suboxone 8-2 mg SL TAB*] DULoxetine DR CAP* [Cymbalta CAP*] 120 mg PO DAILY #60 cap 06/14/17 Rx Mirtazapine TAB* [Remeron TAB*] 30 mg PO BEDTIME #60 tab 06/14/17 Rx clonazePAM TAB(*) [Klonopin TAB(*)] 1 mg PO BID #60 tab MDD 2 06/14/17 Rx traZODone TAB* [Desyrel TAB*] 150 mg PO BEDTIME #45 tab 06/14/17 Rx Follow-Up: Appts for within the next 2 weeks scheduled by SW with outpt. provider. Clear for Discharge: Adequate Clinical Respons, Acceptable Safety Profile Inpatient DSM-IV Dx: 1. MDD, R, S w/o PFs. 2. Panic disorder. 3. Agoraphobia. 4. Opioid use d/o, in Suboxone program. 5. Alcohol use d/o, sustained remission. 9. Patient to participate in milieu activities and groups. Discharge Planning - Discharge Planning Discharge Plan: Outpatient Follow Up Recommendations for Continuing Care: Specialty Followup - Patient has follow-up appt scheduled previously with Dr. Orantes, suboxone provider, for tomorrow . Medications: Current Medications Buprenorphine/Naloxone (Suboxone 8-2 Mg Sl Tab*) 1 tab.sl PO DAILY [facility] Last Admin: 06/14/17 08:37 Dose: 1 tab.sl Clonazepam (Klonopin Tab(*)) 1 mg PO BID [facility] Last Admin: 06/14/17 08:37 Dose: 1 mg Diphenhydramine HCl (Benadryl Po*) 50 mg PO BEDTIME [facility] Last Admin: 06/13/17 20:40 Dose: 50 mg Duloxetine HCl (Cymbalta Cap*) 120 mg PO DAILY [facility] Last Admin: 06/14/17 08:37 Dose: 120 mg Mirtazapine (Remeron Tab*) 30 mg PO BEDTIME [facility] Last Admin: 06/13/17 20:40 Dose: 30 mg Nicotine (Nicotine Inhaler*) 10 mg INH Q2H PRN PRN Reason: CRAVING Last Admin: 06/12/17 10:40 Dose: 10 mg Nicotine Polacrilex (Nicotine Gum*) 2 mg PO Q2H PRN PRN Reason: CRAVING Last Admin: 06/12/17 10:40 Dose: 2 mg Trazodone HCl (Desyrel Tab*) 150 mg PO BEDTIME [facility] Last Admin: 06/13/17 20:41 Dose: 150 mg Discharge Planning: Prescriptions provided for discharge [x] Yes [] No Follow up care details as per social work arrangements. Patient response to discharge plan: [] eager for discharge [x] agreeable with discharge plan [] ambivalent about discharge [] disagrees with discharge today
== END 2017-06-14 14:00 | disposition home or self-care (01) | DRG 751 ==
LOC: ED 11:30 → BSU 14:12
PROVIDERS: ADMIT Psychiatry & Neurology Psychiatry; ATTEND Psychiatry & Neurology Psychiatry
PROC: GZHZZZZ Group Psychotherapy (ICD-10-PCS; principal; 2017-06-13)
DX: F33.2 Major depressive disorder, recurrent severe without psychotic features (principal); F40.01 Agoraphobia with panic disorder; F11.90 Opioid use, unspecified, uncomplicated; G47.00 Insomnia, unspecified; G89.29 Other chronic pain; M54.9 Dorsalgia, unspecified; Z87.820 Personal history of traumatic brain injury; Z72.89 Other problems related to lifestyle; Z91.5 Personal history of self-harm; Z81.8 Family history of other mental and behavioral disorders; Z81.1 Family history of alcohol abuse and dependence
CPT/HCPCS: 36415; 80053; 80307; 80320; 80329; 81003; 84443; 85025; 90853; 99222; 99231; 99238; A9270-GY; G0480

== ENCOUNTER 2017-07-24 16:51 | Emergency (ER) | payer OTHER ==
[2017-07-24 17:30] LABS: Hematocrit 43 % (42-52); Hemoglobin 14.8 g/dl (14.0-18.0); Mean Corpuscular HGB Conc 34 g/dl (31-36); Mean Corpuscular Hemoglobin 28 pg (27-31); Mean Corpuscular Volume 82 fL (80-94); Mean Platelet Volume 7 um3 (7.4-10.4); Red Blood Count 5.28 10^6/ul (4.0-5.4); Red Cell Distribution Width 14 % (10.5-15); White Blood Count 7.5 10^3/ul (3.5-10.8)
[2017-07-24 17:34] LABS: Urine Bilirubin Negative (Negative); Urine Glucose Negative (Negative); Urine Nitrite Negative (Negative)
[2017-07-24 17:43] LABS: ALT 8 U/L (7-52); AST 15 U/L (13-39); Albumin 4.8 g/dL (3.2-5.2); Alkaline Phosphatase 43 U/L (34-104); Anion Gap 9 mmol/L (2-11); BUN/Creatinine Ratio 11.1 (8-20); Blood Urea Nitrogen 13 mg/dL (6-24); CO2 Carbon Dioxide 27 mmol/L (22-32); Calcium 9.4 mg/dL (8.6-10.3); Chloride 103 mmol/L (101-111); EGFR African American 89.3 (>60); EGFR Non-African American 69.4 (>60); Globulin 2.7 g/dL (2-4); Glucose 103 mg/dL (70-100); Potassium 3.4 mmol/L (3.5-5.0); Sodium 139 mmol/L (133-145); Total Protein 7.5 g/dL (6.4-8.9)
[2017-07-24 17:47] LABS: Benzodiazepine Urine Screen None Detected (None Detect)
[2017-07-24 18:11] LABS: Acetaminophen < 15 mcg/mL; Alcohol < 10 mg/dL (<10); Salicylate < 2.50 mg/dL (<30)
--- NOTE | 2017-07-24 18:12 | ED ---
Psychiatric Complaint - HPI Summary HPI Summary: Pt here w/ progressing anxiety, panic d/o and agoraphobia. Does not feel safe at home so called mom who picked him up 4 days ago. Hasn't been eating much - she's been offering food to make sure he eats. He is worried about harming himself as he's had a h/o cutting his throat - doesn't recall details as she states his mind was racing at the time. 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 He is currently taking suboxone which prevents cravings. Also takes benton Love: clonazepam (not working as well over the past few months), trazodone, mirtazapine and duloxetine. Denies physical complaints at this time other than feeling exhausted from constant anxiety w/o known cause. - History Of Current Complaint Chief Complaint: EDMentalHealth Time Seen by Provider: 07/24/17 17:07 Hx Obtained From: Patient, Family/Steam Table Associate - mom - anxiety and depression since young child - worried about him harming himself - Allergies/Home Medications Allergies/Adverse Reactions: Allergies Allergy/AdvReac Type Severity Reaction Status Date / Time Seasonal Allergies Allergy Mild Congestion Uncoded 06/07/17 20:48 Home Medications: Home Medications Suboxone 4-1 mg 4 mg PO QPM 07/24/17 [History Confirmed 07/24/17] Suboxone 8-2 mg 8 mg PO QAM 07/24/17 [History Confirmed 07/24/17] PMH/Surg Hx/FS Hx/Imm Hx Previously Healthy: Yes Endocrine/Hematology History: Denies: Hx Thyroid Disease, Hx Anemia Cardiovascular History: Denies: Hx Congenital Heart Disease, Hx Hypotension, Hx Hypertension Musculoskeletal History: Reports: Hx Back Problems - pt reports chronic back pain Sensory History: Denies: Hx Contacts or Glasses, Hx Hearing Aid Opthamlomology History: Denies: Hx Contacts or Glasses Neurological History: Reports: Other Neuro Impairments/Disorders - hx of concussions Psychiatric History: Reports: Hx Anxiety, Hx Depression, Hx Inpatient Treatment , Hx Suicide Attempt - Two prior attempts, Hx Substance Abuse - Narcotics/ Heroin - currently on suboxone Denies: Hx Eating Disorder, Hx of Violent Episodes Against Others Infectious Disease History: No Infectious Disease History: Denies: Traveled Outside the [place] in Last 30 Days - Social History Occupation: Disabled Lives: Alone Alcohol Use: None Alcohol Amount: hasn't drank in years - no previous addiction per pt Hx Substance Use: Yes - on suboxone currently Substance Use Type: Reports: Heroin, Prescribed Substance Use Comment - Amount & Last Used: Addicted to pain medication and then was using heroin prior to going rehab Hx Tobacco Use: No Smoking Status (MU): Never Smoked Tobacco Amount Used/How Often: Never used tobacco Length of Time of Smoking/Using Tobacco: never used tobacco Review of Systems Positive: Fatigue. Negative: Fever, Chills Eyes: Negative ENT: Negative Cardiovascular: Negative Negative: Chest Pain Respiratory: Negative Negative: Shortness Of Breath Gastrointestinal: Negative Negative: Abdominal Pain, Vomiting, Diarrhea, Nausea Positive: no symptoms reported Musculoskeletal: Negative Skin: Negative Neurological: Negative Psychological: Other - see HPI All Other Systems Reviewed And Are Negative: Yes Physical Exam Triage Information Reviewed: Yes Vital Signs On Initial Exam: Initial Vitals Temp Pulse Resp BP Pulse Ox 97.8 F 87 19 130/98 100 07/24/17 16:56 07/24/17 16:56 07/24/17 16:56 07/24/17 16:56 07/24/17 16:56 Vital Signs Reviewed: Yes Appearance: Positive: Well-Appearing, No Pain Distress, Well-Nourished Skin: Positive: Warm, Dry Head/Face: Positive: Normal Head/Face Inspection Eyes: Positive: Normal, EOMI, YNES, Conjunctiva Clear ENT: Positive: Normal ENT inspection, Hearing grossly normal, Pharynx normal - mucosa moist Respiratory/Lung Sounds: Positive: Clear to Auscultation, Breath Sounds Present. Negative: Rales, Rhonchi, Wheezes Cardiovascular: Positive: Normal, RRR, S1, S2 Abdomen Description: Positive: Nontender, No Organomegaly, Soft Bowel Sounds: Positive: Present Musculoskeletal: Positive: Normal, Strength/ROM Intact Neurological: Positive: Normal, Sensory/Motor Intact, Alert, Oriented to Person Place, Time, CN Intact II-III Psychiatric: Positive: Other - blunted affect, low mood, low voice but is responsive in timely fashion, calm and cooperative - no physical signs of agitation Diagnostics - Vital Signs Vital Signs Temp Pulse Resp BP Pulse Ox 07/24/17 16:56 97.8 F 87 19 130/98 100 - Laboratory Lab Results: Lab Results 07/24/17 07/24/17 07/24/17 Range/Units 17:14 17:14 17:18 WBC (3.5-10.8) 10^3/ul RBC (4.0-5.4) 10^6/ul Hgb (14.0-18.0) g/dl Hct (42-52) % MCV (80-94) fL MCH (27-31) pg MCHC (31-36) g/dl RDW (10.5-15) % Plt Count (150-450) 10^3/ul MPV (7.4-10.4) um3 Neut % (Auto) (38-83) % Lymph % (Auto) (25-47) % [place] % (Auto) (1-9) % Eos % (Auto) (0-6) % Baso % (Auto) (0-2) % Absolute Neuts (auto) (1.5-7.7) 10^3/ul Absolute Lymphs (auto) (1.0-4.8) 10^3/ul Absolute Monos (auto) (0-0.8) 10^3/ul Absolute Eos (auto) (0-0.6) 10^3/ul Absolute Basos (auto) (0-0.2) 10^3/ul Absolute Nucleated RBC 10^3/ul Nucleated RBC % Sodium 139 (133-145) mmol/L Potassium 3.4 L (3.5-5.0) mmol/L Chloride 103 (101-111) mmol/L Carbon Dioxide 27 (22-32) mmol/L Anion Gap 9 (2-11) mmol/L BUN 13 (6-24) mg/dL Creatinine 1.17 (0.67-1.17) mg/dL Est GFR ( Amer) 89.3 (>60) Est GFR (Non-Af Amer) 69.4 (>60) BUN/Creatinine Ratio 11.1 (8-20) Glucose 103 H (70-100) mg/dL Calcium 9.4 (8.6-10.3) mg/dL Total Bilirubin 0.50 (0.2-1.0) mg/dL AST 15 (13-39) U/L ALT 8 (7-52) U/L Alkaline Phosphatase 43 (34-104) U/L Total Protein 7.5 (6.4-8.9) g/dL Albumin 4.8 (3.2-5.2) g/dL Globulin 2.7 (2-4) g/dL Albumin/Globulin Ratio 1.8 (1-3) TSH Pending Urine Color Yellow Urine Appearance Cloudy Urine pH 6.0 (5-9) Ur Specific [place] 1.025 (1.010-1.030) Urine Protein Negative (Negative) Urine Ketones Negative (Negative) Urine Blood Negative (Negative) Urine Nitrate Negative (Negative) Urine Bilirubin Negative (Negative) Urine Urobilinogen Negative (Negative) Ur Leukocyte Esterase Negative (Negative) Urine Glucose Negative (Negative) Salicylates Pending Urine Opiates Screen None detected (None Detect) Acetaminophen Pending Ur Barbiturates Screen None detected (None Detect) Ur Phencyclidine Scrn None detected (None Detect) Ur Amphetamines Screen None detected (None Detect) U Benzodiazepines Scrn None detected (None Detect) Urine Cocaine Screen None detected (None Detect) U Cannabinoids Screen None detected (None Detect) Serum Alcohol Pending 07/24/17 Range/Units 17:18 WBC 7.5 (3.5-10.8) 10^3/ul RBC 5.28 (4.0-5.4) 10^6/ul Hgb 14.8 (14.0-18.0) g/dl Hct 43 (42-52) % MCV 82 (80-94) fL MCH 28 (27-31) pg MCHC 34 (31-36) g/dl RDW 14 (10.5-15) % Plt Count 246 (150-450) 10^3/ul MPV 7 L (7.4-10.4) um3 Neut % (Auto) 47.5 (38-83) % Lymph % (Auto) 41.8 (25-47) % [place] % (Auto) 6.7 (1-9) % Eos % (Auto) 3.4 (0-6) % Baso % (Auto) 0.6 (0-2) % Absolute Neuts (auto) 3.6 (1.5-7.7) 10^3/ul Absolute Lymphs (auto) 3.1 (1.0-4.8) 10^3/ul Absolute Monos (auto) 0.5 (0-0.8) 10^3/ul Absolute Eos (auto) 0.3 (0-0.6) 10^3/ul Absolute Basos (auto) 0 (0-0.2) 10^3/ul Absolute Nucleated RBC 0.01 10^3/ul Nucleated RBC % 0.1 Sodium (133-145) mmol/L Potassium (3.5-5.0) mmol/L Chloride (101-111) mmol/L Carbon Dioxide (22-32) mmol/L Anion Gap (2-11) mmol/L BUN (6-24) mg/dL Creatinine (0.67-1.17) mg/dL Est GFR ( Amer) (>60) Est GFR (Non-Af Amer) (>60) BUN/Creatinine Ratio (8-20) Glucose (70-100) mg/dL Calcium (8.6-10.3) mg/dL Total Bilirubin (0.2-1.0) mg/dL AST (13-39) U/L ALT (7-52) U/L Alkaline Phosphatase (34-104) U/L Total Protein (6.4-8.9) g/dL Albumin (3.2-5.2) g/dL Globulin (2-4) g/dL Albumin/Globulin Ratio (1-3) TSH Urine Color Urine Appearance Urine pH (5-9) Ur Specific [place] (1.010-1.030) Urine Protein (Negative) Urine Ketones (Negative) Urine Blood (Negative) Urine Nitrate (Negative) Urine Bilirubin (Negative) Urine Urobilinogen (Negative) Ur Leukocyte Esterase (Negative) Urine Glucose (Negative) Salicylates Urine Opiates Screen (None Detect) Acetaminophen Ur Barbiturates Screen (None Detect) Ur Phencyclidine Scrn (None Detect) Ur Amphetamines Screen (None Detect) U Benzodiazepines Scrn (None Detect) Urine Cocaine Screen (None Detect) U Cannabinoids Screen (None Detect) Serum Alcohol Result Diagrams: 07/24/17 17:18 07/24/17 17:18 Lab Statement: Any lab studies that have been ordered have been reviewed, and results considered in the medical decision making process. Course/Dx - Course Course Of Treatment: Spoke w/ SYDNIE Naidu - to evaluate once other folks are completed after 23:00. Pt's mom aware and charge nurse aware pt needs place out of hallway as he has agoraphobia. Signed out to Joanie Madison PA-C at shift change. - Differential Dx/Clinical Impression Provider Diagnosis: Suicidal ideation, Anxiety, Depression Discharge - Discharge Plan Condition: Guarded Disposition: OTHER Discharge Disposition Comment: signed out Referrals: Rolanda GREEN,Timmy Banuelos [Primary Care Provider] -
[2017-07-24 18:26] LABS: TSH (Thyroid Stimulating Horm) 3.22 mcIU/mL (0.34-5.60)
[2017-07-24] MEDS ORDERED: traZODone TAB* 50 MG TAB PO ONE (20:01)
[2017-07-24] MEDS ORDERED: Mirtazapine TAB* 15 MG PO ONE (20:01)
[2017-07-24] MEDS ORDERED: clonazePAM TAB(*) 1 MG PO ONE (20:01)
[2017-07-24] MEDS ORDERED: Buprenorphine TAB* 2 MG TAB.SL SL ONE (20:05)
[2017-07-24] MEDS ORDERED: clonazePAM TAB(*) 0.5 MG PO ONE (22:00)
--- NOTE | 2017-07-25 02:51 | PN ---
Progress Note - Progress Note Date of Service: 07/24/17 Note: Patient was a sign out from Kerry Ordoñez at shift change pending psych evaluation and disposition. On re-eval RRR and CTA. No complaints. Medically cleared. Still awaiting psych evaluation. No changes were taken while under my care. Signed out to Dr Meadows at shift change still pending psych evaluation and disposition. Kerry did suggest admission due to previous attempts and severe depression. Suicidal thoughts with plan.
[2017-07-25] MEDS ORDERED: LORazepam TAB(*) 1 MG ONE (05:03)
[2017-07-25] MEDS ORDERED: ARIPiprazole TAB* 2 MG PO ONE (06:00)
[2017-07-25] MEDS ORDERED: Potassium Chlor TAB* 20 MEQ TAB.ER PO ONE (11:47)
[2017-07-25] MEDS ORDERED: clonazePAM TAB(*) 1 MG PO ONE (12:00)
[2017-07-25] MEDS ORDERED: Buprenorphine/Naloxone 8-2 MG SL TAB* 1 TAB PO ONE (12:00)
[2017-07-25] MEDS ORDERED: DULoxetine DR CAP* 60 MG CAP.DR PO ONE (12:00)
[2017-07-25 13:04] VITALS: BP 114/75
--- NOTE | 2017-07-25 15:21 | PN ---
ED Flex Patient Progress Note Subjective: This is a 41 year-old M who is pending admission to psychiatric facility secondary to SI . Pt offers no complaints at this time - slept well last night. Requesting morning meds. Objective: Vitals: Most recent vital signs documented below. General NAD, Alert and oriented x3. Lungs: breathing easily PSYCH: calm, cooperative Assessment: 1) SI 2) anxiety 3) opioid dependence Plan: 1) Pending psychiatric admit. Will follow up daily __until admit___. 2) routine meds ordered this morning 3) routine suboxone ordered this morning Vital Signs Temp Pulse Resp BP Pulse Ox 98.2 F 73 18 114/75 99 07/25/17 13:04 07/25/17 13:04 07/25/17 13:04 07/25/17 13:04 07/25/17 13:04 Lab Results - Entire Visit 07/24/17 07/24/17 07/24/17 17:18 17:18 17:14 WBC 7.5 RBC 5.28 Hgb 14.8 Hct 43 MCV 82 MCH 28 MCHC 34 RDW 14 Plt Count 246 MPV 7 L Neut % (Auto) 47.5 Lymph % (Auto) 41.8 [place] % (Auto) 6.7 Eos % (Auto) 3.4 Baso % (Auto) 0.6 Absolute Neuts (auto) 3.6 Absolute Lymphs (auto) 3.1 Absolute Monos (auto) 0.5 Absolute Eos (auto) 0.3 Absolute Basos (auto) 0 Absolute Nucleated RBC 0.01 Nucleated RBC % 0.1 Sodium 139 Potassium 3.4 L Chloride 103 Carbon Dioxide 27 Anion Gap 9 BUN 13 Creatinine 1.17 Est GFR ( Amer) 89.3 Est GFR (Non-Af Amer) 69.4 BUN/Creatinine Ratio 11.1 Glucose 103 H Calcium 9.4 Total Bilirubin 0.50 AST 15 ALT 8 Alkaline Phosphatase 43 Total Protein 7.5 Albumin 4.8 Globulin 2.7 Albumin/Globulin Ratio 1.8 TSH 3.22 Urine Color Yellow Urine Appearance Cloudy Urine pH 6.0 Ur Specific [place] 1.025 Urine Protein Negative Urine Ketones Negative Urine Blood Negative Urine Nitrate Negative Urine Bilirubin Negative Urine Urobilinogen Negative Ur Leukocyte Esterase Negative Urine Glucose Negative Salicylates < 2.50 Urine Opiates Screen Acetaminophen < 15 Ur Barbiturates Screen Ur Phencyclidine Scrn Ur Amphetamines Screen U Benzodiazepines Scrn Urine Cocaine Screen U Cannabinoids Screen Serum Alcohol < 10 07/24/17 17:14 WBC RBC Hgb Hct MCV MCH MCHC RDW Plt Count MPV Neut % (Auto) Lymph % (Auto) [place] % (Auto) Eos % (Auto) Baso % (Auto) Absolute Neuts (auto) Absolute Lymphs (auto) Absolute Monos (auto) Absolute Eos (auto) Absolute Basos (auto) Absolute Nucleated RBC Nucleated RBC % Sodium Potassium Chloride Carbon Dioxide Anion Gap BUN Creatinine Est GFR ( Amer) Est GFR (Non-Af Amer) BUN/Creatinine Ratio Glucose Calcium Total Bilirubin AST ALT Alkaline Phosphatase Total Protein Albumin Globulin Albumin/Globulin Ratio TSH Urine Color Urine Appearance Urine pH Ur Specific [place] Urine Protein Urine Ketones Urine Blood Urine Nitrate Urine Bilirubin Urine Urobilinogen Ur Leukocyte Esterase Urine Glucose Salicylates Urine Opiates Screen None detected Acetaminophen Ur Barbiturates Screen None detected Ur Phencyclidine Scrn None detected Ur Amphetamines Screen None detected U Benzodiazepines Scrn None detected Urine Cocaine Screen None detected U Cannabinoids Screen None detected Serum Alcohol
--- NOTE | 2017-07-25 18:59 | PN ---
Carin Lang SooYoung, scribed for Lamont Castle MD on 07/25/17 at 1652 . Progress Note - Progress Note Date of Service: 07/25/17 Note: COT: Pt was seen by Dr. Barajas, who recommends in-patient services. He spoke with Diane , of the in-patient behavioral unit at [facility] who agrees/ accepts pt for transfer. I spoke to Dr. Seaman, ED doc and discussed the pt, who accepted pt for transport. DX: ANXIETY. SI. DISPO: Stable, transfer. The documentation as recorded by the scribeCarin SooYoung accurately reflects the service I personally performed and the decisions made by , Lamont Castle MD.
== END 2017-07-25 13:04 | disposition home or self-care (01) ==
LOC: ED 16:51
DX: R45.851 Suicidal ideations (principal); F41.8 Other specified anxiety disorders
CPT/HCPCS: 36415; 80053; 80307; 80320; 80329; 81003; 84443; 85025; 99282; A9270-GY; G0480

== ENCOUNTER 2017-09-10 11:09 | Inpatient (IN) | payer OTHER ==
--- NOTE | 2017-09-10 12:39 | ED ---
Psychiatric Complaint - HPI Summary HPI Summary: Patient presents to the ED with CC of suicidal thoughts, anhedonia, social isolation, severe depression and anxiety, agoraphobia, social phobia and drug addiction (most recently opioid). Current medications includes duloxetine 60mhg , mirtazapine 30mg, trazodone 100mg, clonazepam .5mg, suboxone 8mg. Patient has had a long history of SI and 1 year ago made an attempt with cutting his throat. He has been seen here multiple times and is upset regarding the system discharging him without giving him proper care. He is inbetween PCP at the moment. Currently is not using drugs or ETOH. Mother is at bedside and states it has been 8 days and he has not gotten out of bed or eaten. His mother and himself are requesting inpatient to a location and requesting medication change. Previous ED visit he was given ativan with significant improvement of anxiety. - History Of Current Complaint Chief Complaint: EDMentalHealth Time Seen by Provider: 09/10/17 11:23 Hx Obtained From: Patient, Family/Ironer Hand Onset/Duration: Gradual Onset Timing: Constant Severity Initially: Severe Severity Currently: Severe Character: Depressed, Fearful, Anxious, Frustrated Aggravating Factor(s): Nothing Alleviating Factor(s): Medication Associated Signs And Symptoms: Positive: Sleep Disturbance, Appetite Change, Social Withdrawal, Social Isolation Related History: Positive For: Prior Psychiatric Issues Has Suicidal: Reports: Thoughts, Has Prior Attempt(s) - cutting his throat - Risk Factor(s) Completed Suicide Risk Factors: Male, [place] - Allergies/Home Medications Allergies/Adverse Reactions: Allergies Allergy/AdvReac Type Severity Reaction Status Date / Time Seasonal Allergies Allergy Mild Congestion Uncoded 09/10/17 11:19 Home Medications: Home Medications Buprenorphine/Naloxone SL TAB* [Suboxone 8-2 mg SL TAB*] 0.5 tab SL QPM [History Confirmed 09/10/17] Sertraline HCl [Zoloft] 150 mg PO DAILY 09/10/17 [History Confirmed 09/10/17] clonazePAM TAB(*) [Klonopin TAB(*)] 0.5 mg PO TID PRN 09/10/17 [History Confirmed 09/10/17] PMH/Surg Hx/FS Hx/Imm Hx Previously Healthy: Yes Endocrine/Hematology History: Denies: Hx Thyroid Disease, Hx Anemia Cardiovascular History: Denies: Hx Congenital Heart Disease, Hx Hypotension, Hx Hypertension Musculoskeletal History: Reports: Hx Back Problems - pt reports chronic back pain Sensory History: Denies: Hx Contacts or Glasses, Hx Hearing Aid Opthamlomology History: Denies: Hx Contacts or Glasses Neurological History: Reports: Other Neuro Impairments/Disorders - hx of concussions Psychiatric History: Reports: Hx Anxiety, Hx Depression, Hx Inpatient Treatment , Hx Suicide Attempt - Two prior attempts, Hx Substance Abuse - Narcotics/ Heroin - currently on suboxone Denies: Hx Eating Disorder, Hx of Violent Episodes Against Others - Immunization History Hx Pertussis Vaccination: No Immunizations Up to Date: Unable to Obtain/Confirm Infectious Disease History: No Infectious Disease History: Denies: Traveled Outside the [place] in Last 30 Days - Social History Occupation: Unemployed Lives: With Family Alcohol Use: None Alcohol Amount: hasn't drank in years - no previous addiction per pt Hx Substance Use: Yes - on suboxone currently Substance Use Type: Reports: Heroin, Prescribed Substance Use Comment - Amount & Last Used: Addicted to pain medication and then was using heroin prior to going rehab Hx Tobacco Use: No Smoking Status (MU): Never Smoked Tobacco Amount Used/How Often: Never used tobacco Length of Time of Smoking/Using Tobacco: never used tobacco Review of Systems Constitutional: Negative Negative: Fever, Chills, Fatigue, Skin Diaphoresis Eyes: Negative Cardiovascular: Negative Respiratory: Negative Genitourinary: Negative Positive: no symptoms reported, see HPI Musculoskeletal: Negative Neurological: Negative Positive: Anxious, Depressed All Other Systems Reviewed And Are Negative: Yes Physical Exam Triage Information Reviewed: Yes Vital Signs On Initial Exam: Initial Vitals Temp Pulse Resp BP Pulse Ox 98.1 F 88 16 137/87 99 09/10/17 11:19 09/10/17 11:19 09/10/17 11:19 09/10/17 11:19 09/10/17 11:19 Vital Signs Reviewed: Yes Appearance: Positive: Well-Appearing, Well-Nourished Skin: Positive: Warm, Skin Color Reflects Adequate Perfusion Head/Face: Positive: Normal Head/Face Inspection Eyes: Positive: EOMI, YNES, Conjunctiva Clear Neck: Positive: Supple, Nontender, No Lymphadenopathy Respiratory/Lung Sounds: Positive: Clear to Auscultation, Breath Sounds Present Cardiovascular: Positive: Normal, RRR Musculoskeletal: Positive: Strength/ROM Intact Neurological: Positive: Speech Normal Psychiatric: Positive: Normal Diagnostics - Vital Signs Vital Signs Temp Pulse Resp BP Pulse Ox 09/10/17 11:19 98.1 F 88 16 137/87 99 - Laboratory Result Diagrams: 09/10/17 12:37 09/10/17 12:37 Lab Statement: Any lab studies that have been ordered have been reviewed, and results considered in the medical decision making process. Course/Dx - Course Course Of Treatment: Patient is evaluated for SI and previous attempt at suicide with increasing thoughts, anxiety, anhedonia and depression. Mother at bedside. Both requesting inpatient treatment and medication change. He is cleared at this time for MHU. Denies any pain or physical complaints at this time. He is admitted to [facility]. - Differential Dx/Clinical Impression Differential Diagnosis/HQI/PQRI: Positive: Suicide Attempt, Suicidal Ideation, Suicidal Gesture Provider Diagnosis: Suicidal ideation Discharge - Discharge Plan Condition: Stable Disposition: ADMITTED TO [facility] Referrals: Rolanda GREEN,Timmy Banuelos [Primary Care Provider] -
[2017-09-10 13:16] LABS: Hematocrit 43 % (42-52); Hemoglobin 14.6 g/dl (14.0-18.0); Mean Corpuscular HGB Conc 34 g/dl (31-36); Mean Corpuscular Hemoglobin 28 pg (27-31); Mean Corpuscular Volume 82 fL (80-94); Mean Platelet Volume 7 um3 (7.4-10.4); Red Blood Count 5.27 10^6/ul (4.0-5.4); Red Cell Distribution Width 14 % (10.5-15)
[2017-09-10 13:31] LABS: ALT 17 U/L (7-52); AST 18 U/L (13-39); Acetaminophen < 15 mcg/mL; Albumin 4.6 g/dL (3.2-5.2); Alcohol < 10 mg/dL (<10); Alkaline Phosphatase 58 U/L (34-104); Anion Gap 6 mmol/L (2-11); BUN/Creatinine Ratio 13.3 (8-20); Blood Urea Nitrogen 12 mg/dL (6-24); CO2 Carbon Dioxide 29 mmol/L (22-32); Calcium 9.4 mg/dL (8.6-10.3); Chloride 102 mmol/L (101-111); EGFR African American 120.8 (>60); EGFR Non-African American 93.9 (>60); Globulin 2.8 g/dL (2-4); Glucose 99 mg/dL (70-100); Potassium 4.2 mmol/L (3.5-5.0); Salicylate < 2.50 mg/dL (<30); Sodium 137 mmol/L (133-145); Total Protein 7.4 g/dL (6.4-8.9)
[2017-09-10 13:46] LABS: TSH (Thyroid Stimulating Horm) 2.78 mcIU/mL (0.34-5.60)
[2017-09-10 14:59] LABS: Urine Bilirubin Negative (Negative); Urine Glucose Negative (Negative); Urine Nitrite Negative (Negative)
[2017-09-10 15:16] LABS: Benzodiazepine Urine Screen None Detected (None Detect)
[2017-09-10] MEDS ORDERED: Al Hydrox/Mg Hydrox/Simet LIQ* 30 ML UDC PO PRN (17:27)
[2017-09-10] MEDS ORDERED: Acetaminophen TAB* 325 MG PO PRN (17:27)
[2017-09-10] MEDS: hydrOXYzine HCL TAB* 50 MG PO PRN (18:11)
[2017-09-10] MEDS: Buprenorphine/Naloxone 8-2 MG SL TAB* 1 TAB PO SCH (19:58)
[2017-09-10] MEDS ORDERED: Mirtazapine TAB* 15 MG PO SCH (21:00)
[2017-09-11] MEDS: hydrOXYzine HCL TAB* 50 MG PO PRN (08:11)
[2017-09-11] MEDS: Vitamin THERAPEUTIC TAB PO SCH (08:11)
[2017-09-11] MEDS: Buprenorphine/Naloxone 8-2 MG SL TAB* 1 TAB PO SCH ×2 (08:11→20:13)
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
[2017-09-11] MEDS ORDERED: DULoxetine DR CAP* 30 MG CAP.DR PO ONE (15:30)
[2017-09-11] MEDS ORDERED: clonazePAM TAB(*) 1 MG PO ONE (15:30)
[2017-09-11] MEDS: Mirtazapine TAB* 15 MG PO SCH (20:15)
[2017-09-11] MEDS: traZODone TAB* 100 MG PO PRN (20:16)
[2017-09-11] MEDS: clonazePAM TAB(*) 1 MG PO SCH (20:16)
[2017-09-11] MEDS ORDERED: IMIPRAMINE 25 MG PO SCH (21:00)
[2017-09-12] MEDS: Vitamin THERAPEUTIC TAB PO SCH (07:55)
[2017-09-12] MEDS: Buprenorphine/Naloxone 8-2 MG SL TAB* 1 TAB PO SCH ×2 (07:55→20:18)
[2017-09-12] MEDS: DULoxetine DR CAP* 30 MG CAP.DR PO SCH (07:55)
[2017-09-12] MEDS: clonazePAM TAB(*) 1 MG PO SCH ×3 (07:56→20:22)
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
[2017-09-12] MEDS: Mirtazapine TAB* 15 MG PO SCH (20:18)
[2017-09-12] MEDS: traZODone TAB* 100 MG PO PRN (20:22)
[2017-09-12] MEDS ORDERED: IMIPRAMINE 25 MG PO SCH (21:00)
[2017-09-13] MEDS: Buprenorphine/Naloxone 8-2 MG SL TAB* 1 TAB PO SCH ×2 (08:06→20:06)
[2017-09-13] MEDS: DULoxetine DR CAP* 30 MG CAP.DR PO SCH (08:06)
[2017-09-13] MEDS: Vitamin THERAPEUTIC TAB PO SCH (08:07)
[2017-09-13] MEDS: clonazePAM TAB(*) 1 MG PO SCH ×3 (08:09→20:11)
[2017-09-13] MEDS ORDERED: BREXPIPRAZOLE 0.5 MG PO SCH (09:00)
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
[2017-09-13] MEDS: hydrOXYzine HCL TAB* 50 MG PO PRN (15:43)
[2017-09-13] MEDS ORDERED: DULoxetine DR CAP* 20 MG CAP.DR PO ONE (16:14)
[2017-09-13] MEDS: IMIPRAMINE 25 MG PO SCH (20:06)
[2017-09-13] MEDS: Mirtazapine TAB* 15 MG PO SCH (20:06)
[2017-09-13] MEDS: Docusate CAP* 100 MG PO SCH (20:06)
[2017-09-13] MEDS: traZODone TAB* 100 MG PO PRN (20:11)
[2017-09-14] MEDS: Vitamin THERAPEUTIC TAB PO SCH (08:27)
[2017-09-14] MEDS: Buprenorphine/Naloxone 8-2 MG SL TAB* 1 TAB PO SCH ×2 (08:27→20:00)
[2017-09-14] MEDS: Docusate CAP* 100 MG PO SCH ×2 (08:27→20:01)
[2017-09-14] MEDS: CMCS: Brexpiprazole (NF) 0.5 MG TAB PO SCH (08:28)
[2017-09-14] MEDS: clonazePAM TAB(*) 1 MG PO SCH ×3 (08:29→20:03)
[2017-09-14] MEDS ORDERED: DULoxetine DR CAP* 20 MG CAP.DR PO SCH (09:00)
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
[2017-09-14] MEDS: Mirtazapine TAB* 15 MG PO SCH (20:01)
[2017-09-14] MEDS: IMIPRAMINE 25 MG PO SCH (20:02)
[2017-09-14] MEDS: traZODone TAB* 100 MG PO PRN (20:03)
[2017-09-15] MEDS: Buprenorphine/Naloxone 8-2 MG SL TAB* 1 TAB PO SCH ×2 (08:28→20:33)
[2017-09-15] MEDS: Vitamin THERAPEUTIC TAB PO SCH (08:28)
[2017-09-15] MEDS: Docusate CAP* 100 MG PO SCH ×2 (08:29→20:35)
[2017-09-15] MEDS: CMCS: Brexpiprazole (NF) 0.5 MG TAB PO SCH (08:29)
[2017-09-15] MEDS: clonazePAM TAB(*) 1 MG PO SCH ×3 (08:31→20:43)
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
[2017-09-15] MEDS: Mirtazapine TAB* 15 MG PO SCH (20:35)
[2017-09-15] MEDS: IMIPRAMINE 25 MG PO SCH (20:35)
[2017-09-15] MEDS: traZODone TAB* 100 MG PO PRN (20:42)
[2017-09-16] MEDS: Vitamin THERAPEUTIC TAB PO SCH (08:23)
[2017-09-16] MEDS: Docusate CAP* 100 MG PO SCH ×2 (08:23→20:11)
[2017-09-16] MEDS: Buprenorphine/Naloxone 8-2 MG SL TAB* 1 TAB PO SCH ×2 (08:23→20:10)
[2017-09-16] MEDS: CMCS: Brexpiprazole (NF) 0.5 MG TAB PO SCH (08:24)
[2017-09-16] MEDS: clonazePAM TAB(*) 1 MG PO SCH ×3 (08:24→20:11)
[2017-09-16] MEDS: hydrOXYzine HCL TAB* 50 MG PO PRN (11:00)
[2017-09-16] MEDS: IMIPRAMINE 25 MG PO SCH (20:12)
[2017-09-16] MEDS: Mirtazapine TAB* 15 MG PO SCH (20:13)
[2017-09-16] MEDS: traZODone TAB* 100 MG PO PRN (20:13)
[2017-09-17] MEDS: Vitamin THERAPEUTIC TAB PO SCH (08:43)
[2017-09-17] MEDS: CMCS: Brexpiprazole (NF) 0.5 MG TAB PO SCH (08:43)
[2017-09-17] MEDS: Buprenorphine/Naloxone 8-2 MG SL TAB* 1 TAB PO SCH ×2 (08:43→20:02)
[2017-09-17] MEDS: clonazePAM TAB(*) 1 MG PO SCH ×3 (08:44→20:06)
[2017-09-17] MEDS: Docusate CAP* 100 MG PO SCH ×2 (08:45→20:04)
[2017-09-17] MEDS: hydrOXYzine HCL TAB* 50 MG PO PRN (15:07)
[2017-09-17] MEDS: IMIPRAMINE 25 MG PO SCH (20:04)
[2017-09-17] MEDS: traZODone TAB* 100 MG PO PRN (20:04)
[2017-09-17] MEDS: Mirtazapine TAB* 15 MG PO SCH (20:04)
[2017-09-18] MEDS: Vitamin THERAPEUTIC TAB PO SCH (08:14)
[2017-09-18] MEDS: clonazePAM TAB(*) 1 MG PO SCH ×3 (08:14→21:30)
[2017-09-18] MEDS: Docusate CAP* 100 MG PO SCH ×2 (08:14→21:30)
[2017-09-18] MEDS: Buprenorphine/Naloxone 8-2 MG SL TAB* 1 TAB PO SCH (08:15)
[2017-09-18] MEDS: CMCS: Brexpiprazole (NF) 0.5 MG TAB PO SCH (08:15)
[2017-09-18] MEDS: hydrOXYzine HCL TAB* 50 MG PO PRN (12:37)
--- NOTE | 2017-09-18 12:52 | PN ---
[facility]: Group Therapy Note - Service Type Service Type: 99023 Group Psychotherapy - Cognitive Behavioral Group Therapy ( CBT):Patient was attentive and participatory in CBT programming this morning, and remained in good behavioral control. Patient expressed positive insights regarding relevant treatment interventions and goals.
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
[2017-09-18] MEDS: IMIPRAMINE 25 MG PO SCH (21:30)
[2017-09-18] MEDS: traZODone TAB* 100 MG PO PRN (21:31)
[2017-09-18] MEDS ORDERED: Buprenorphine/Naloxone 8-2 MG SL TAB* 1 TAB SL ONE (22:00)
[2017-09-19] MEDS: Buprenorphine/Naloxone 8-2 MG SL TAB* 1 TAB PO SCH (08:20)
[2017-09-19] MEDS: hydrOXYzine HCL TAB* 50 MG PO PRN ×2 (08:20→20:41)
[2017-09-19] MEDS: Docusate CAP* 100 MG PO SCH ×2 (08:20→20:39)
[2017-09-19] MEDS: clonazePAM TAB(*) 1 MG PO SCH ×3 (08:20→20:38)
[2017-09-19] MEDS: Vitamin THERAPEUTIC TAB PO SCH (08:20)
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
[2017-09-19] MEDS: traZODone TAB* 100 MG PO PRN (20:39)
[2017-09-19] MEDS: IMIPRAMINE 25 MG PO SCH (20:39)
[2017-09-20] MEDS: Buprenorphine/Naloxone 8-2 MG SL TAB* 1 TAB PO SCH ×2 (08:09→20:14)
[2017-09-20] MEDS: Docusate CAP* 100 MG PO SCH ×2 (08:10→20:15)
[2017-09-20] MEDS: Vitamin THERAPEUTIC TAB PO SCH (08:10)
[2017-09-20] MEDS: clonazePAM TAB(*) 1 MG PO SCH ×3 (08:12→20:14)
[2017-09-20] MEDS: hydrOXYzine HCL TAB* 50 MG PO PRN ×2 (08:12→20:15)
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
[2017-09-20] MEDS: traZODone TAB* 100 MG PO PRN (20:15)
[2017-09-20] MEDS: IMIPRAMINE 25 MG PO SCH (20:15)
[2017-09-21] MEDS: clonazePAM TAB(*) 1 MG PO SCH ×3 (08:07→21:27)
[2017-09-21] MEDS: Vitamin THERAPEUTIC TAB PO SCH (08:08)
[2017-09-21] MEDS: Buprenorphine/Naloxone 8-2 MG SL TAB* 1 TAB PO SCH ×2 (08:08→20:20)
[2017-09-21] MEDS: Docusate CAP* 100 MG PO SCH ×2 (08:08→20:22)
[2017-09-21] MEDS: hydrOXYzine HCL TAB* 50 MG PO PRN (20:22)
[2017-09-21] MEDS: IMIPRAMINE 25 MG PO SCH (20:24)
[2017-09-21] MEDS: traZODone TAB* 100 MG PO PRN (20:24)
[2017-09-22] MEDS: Vitamin THERAPEUTIC TAB PO SCH (08:31)
[2017-09-22] MEDS: Buprenorphine/Naloxone 8-2 MG SL TAB* 1 TAB PO SCH ×2 (08:31→20:27)
[2017-09-22] MEDS: hydrOXYzine HCL TAB* 50 MG PO PRN ×2 (08:31→20:23)
[2017-09-22] MEDS: Docusate CAP* 100 MG PO SCH ×2 (08:31→20:24)
[2017-09-22] MEDS: clonazePAM TAB(*) 1 MG PO SCH ×3 (08:33→18:14)
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
[2017-09-22] MEDS: traZODone TAB* 100 MG PO PRN (20:23)
[2017-09-22] MEDS: IMIPRAMINE 25 MG PO SCH (20:24)
[2017-09-22] MEDS: Temazepam CAP* 15 MG PO SCH (20:24)
[2017-09-23] MEDS: Buprenorphine/Naloxone 8-2 MG SL TAB* 1 TAB PO SCH ×2 (08:20→20:10)
[2017-09-23] MEDS: Docusate CAP* 100 MG PO SCH ×2 (08:20→20:10)
[2017-09-23] MEDS: Vitamin THERAPEUTIC TAB PO SCH (08:20)
[2017-09-23] MEDS: clonazePAM TAB(*) 1 MG PO SCH ×2 (08:21→16:02)
[2017-09-23] MEDS: hydrOXYzine HCL TAB* 50 MG PO PRN ×2 (08:22→20:13)
[2017-09-23] MEDS: Temazepam CAP* 15 MG PO SCH (20:11)
[2017-09-23] MEDS: IMIPRAMINE 25 MG PO SCH (20:11)
[2017-09-23] MEDS: traZODone TAB* 100 MG PO PRN (20:14)
[2017-09-24] MEDS: Docusate CAP* 100 MG PO SCH ×2 (08:28→20:16)
[2017-09-24] MEDS: clonazePAM TAB(*) 1 MG PO SCH ×2 (08:28→16:18)
[2017-09-24] MEDS: hydrOXYzine HCL TAB* 50 MG PO PRN ×2 (08:28→20:17)
[2017-09-24] MEDS: Buprenorphine/Naloxone 8-2 MG SL TAB* 1 TAB PO SCH ×2 (08:28→20:18)
[2017-09-24] MEDS: Vitamin THERAPEUTIC TAB PO SCH (08:28)
[2017-09-24] MEDS: traZODone TAB* 100 MG PO PRN (20:16)
[2017-09-24] MEDS: Temazepam CAP* 15 MG PO SCH (20:17)
[2017-09-24] MEDS: IMIPRAMINE 25 MG PO SCH (20:19)
[2017-09-25] MEDS: hydrOXYzine HCL TAB* 50 MG PO PRN (07:44)
[2017-09-25] MEDS: Docusate CAP* 100 MG PO SCH (07:45)
[2017-09-25] MEDS: Vitamin THERAPEUTIC TAB PO SCH (07:45)
[2017-09-25] MEDS: clonazePAM TAB(*) 1 MG PO SCH (07:45)
[2017-09-25] MEDS: Buprenorphine/Naloxone 8-2 MG SL TAB* 1 TAB PO SCH (07:45)
[2017-09-25 09:17] VITALS: BP 94/71
[2017-09-25 21:45] LABS: Imipramine & Desipramine 187 ng/mL (175-300)
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
== END 2017-09-25 15:40 | disposition home or self-care (01) | DRG 755 ==
LOC: ED 11:09 → BSU 17:20
PROVIDERS: ADMIT Psychiatry & Neurology Psychiatry; ATTEND Psychiatry & Neurology Psychiatry
PROC: GZHZZZZ Group Psychotherapy (ICD-10-PCS; principal; 2017-09-18)
DX: F40.01 Agoraphobia with panic disorder (principal); F33.2 Major depressive disorder, recurrent severe without psychotic features; R45.851 Suicidal ideations; F11.20 Opioid dependence, uncomplicated; F43.10 Post-traumatic stress disorder, unspecified; F34.1 Dysthymic disorder; Z62.810 Personal history of physical and sexual abuse in childhood; R45.84 Anhedonia; M54.30 Sciatica, unspecified side; J30.2 Other seasonal allergic rhinitis; G89.29 Other chronic pain; I95.2 Hypotension due to drugs; R00.0 Tachycardia, unspecified; Y92.239 Unspecified place in hospital as the place of occurrence of the external cause; T43.025A Adverse effect of tetracyclic antidepressants, initial encounter; Z87.820 Personal history of traumatic brain injury; Z91.5 Personal history of self-harm; Z81.8 Family history of other mental and behavioral disorders; Z81.1 Family history of alcohol abuse and dependence; Z56.0 Unemployment, unspecified
CPT/HCPCS: 36415; 80053; 80307; 80320; 80329; 80335; 81003; 84443; 85025; 90853; 93005; 99222; 99231; 99238; A9270-GY; G0480

== ENCOUNTER 2018-07-04 16:37 | Inpatient (IN) | payer OTHER ==
[2018-07-04 17:17] LABS: Urine Appearance Clear; Urine Blood Negative (Negative); Urine Color Yellow; Urine Ketones 1+ (Negative); Urine Protein Negative (Negative); Urine Urobilinogen Negative (Negative)
[2018-07-04 17:32] LABS: ABS Basophils 0 10^3/ul (0-0.2); ABS Eosinophils 0 10^3/ul (0-0.6); ABS Lymphocytes 1.3 10^3/ul (1.0-4.8); ABS Monocytes 0.4 10^3/ul (0-0.8); ABS Nucleated RBC 0 10^3/ul; Eosinophil % 0.6 % (0-6); Hematocrit 41 % (42-52); Hemoglobin 13.6 g/dl (14.0-18.0); Lymphocyte % 18.7 % (25-47); Mean Corpuscular HGB Conc 33 g/dl (31-36); Mean Corpuscular Hemoglobin 26 pg (27-31); Mean Corpuscular Volume 79 fL (80-94); Nucleated Red Blood Cells % 0; Platelet Count 218 10^3/ul (150-450); Red Blood Count 5.21 10^6/ul (4.00-5.40); Red Cell Distribution Width 14 % (10.5-15); White Blood Count 6.8 10^3/ul (3.5-10.8)
--- NOTE | 2018-07-04 17:44 | ED ---
Psychiatric Complaint - HPI Summary HPI Summary: This patient is a 42 year old M presenting to [facility] with a chief complaint of SI with a plan to jump off of his building since last week. He notes sx were worse last PM 07/03/18, when he says he came very close to acting on his suicidal thoughts. PMHx panic disorder; now his panic attacks and anxiety are leading to SI. He notes that his thoughts of suicide are becoming increasingly vivid, and he has become fearful that he will act on them. Pt is medication compliant. He endorses a previous suicide attempt (1 year ago), and numerous psych admissions. Pt denies hallucinations and HI. Pt denies drug and alcohol use. - History Of Current Complaint Chief Complaint: EDMentalHealth Time Seen by Provider: 07/04/18 17:02 Hx Obtained From: Patient Onset/Duration: Gradual Onset, Lasting Days, Still Present, Worse Since - PM Timing: Constant Severity Initially: Moderate Severity Currently: Moderate Character: Depressed, Anxious Aggravating Factor(s): Nothing Alleviating Factor(s): Nothing Associated Signs And Symptoms: Negative: Hallucinating Related History: Positive For: Prior Psychiatric Issues, Drug Abuse Counseling, Admissions Related To Substance Abuse Has Suicidal: Reports: Thoughts, With A Plan, Has Prior Attempt(s) Has Homicidal: Denies: Thoughts - Allergies/Home Medications Allergies/Adverse Reactions: Allergies Allergy/AdvReac Type Severity Reaction Status Date / Time Seasonal Allergies Allergy Mild Congestion Uncoded 07/05/18 06:42 Home Medications: Home Medications Buprenorphine/Naloxone SL TAB* [Suboxone 8-2 mg SL TAB*] 1 tab.sl SL BID [History Confirmed 07/05/18] DULoxetine DR GOINS* [Cymbalta CAP*] 120 mg PO DAILY 07/04/18 [History Confirmed 07/04/18] LORazepam TAB(*) [Ativan 0.5 MG TAB (*)] 0.5 mg PO Q4H PRN 07/04/18 [History Confirmed 07/04/18] Melatonin (NF) 6 mg PO BEDTIME PRN 07/04/18 [History Confirmed 07/04/18] Mirtazapine TAB* [Remeron TAB*] 30 mg PO BEDTIME 07/04/18 [History Confirmed ] QUEtiapine TAB* [Seroquel 100 MG *] 300 mg PO BEDTIME 07/04/18 [History Confirmed 07/04/18] traZODone TAB* [Desyrel TAB*] 50 mg PO BEDTIME PRN 07/04/18 [History Confirmed 07/04/18] PMH/Surg Hx/FS Hx/Imm Hx Endocrine/Hematology History: Denies: Hx Thyroid Disease, Hx Anemia Cardiovascular History: Denies: Hx Congenital Heart Disease, Hx Hypotension, Hx Hypertension Respiratory History: Denies: Hx Lung Cancer GI History: Denies: Hx Ileostomy History: Denies: Hx Dialysis Musculoskeletal History: Reports: Hx Back Problems - pt reports chronic back pain Sensory History: Reports: Hx Contacts or Glasses - patient is wearing black frame glasses Denies: Hx Deafness, Hx Hearing Aid Opthamlomology History: Reports: Hx Contacts or Glasses - patient is wearing black frame glasses EENT History: Denies: Hx Deafness Neurological History: Reports: Other Neuro Impairments/Disorders - hx of concussions/two traumatic brain injuries Denies: Hx Dementia, Hx Headaches, Hx Migraine, Hx Nerve Disease, Hx Seizures , Hx Spinal Cord Injury, Hx Transient Ischemic Attacks (TIA) Psychiatric History: Reports: Hx Anxiety, Hx Depression, Hx Panic Disorder - pt reports, Hx Inpatient Treatment, Hx Community Mental Health Tx - pt infrequently attends meetings due to agoraphobia, Hx Suicide Attempt - Two prior attempts, Hx Substance Abuse - Narcotics/Heroin - currently on suboxone, Other Psychiatric Issues/Disorders - Agoraphobia Denies: Hx Attention Deficit Hyperactivity Disorder, Hx Eating Disorder, Hx Post Traumatic Stress Disorder, Hx Schizophrenia, Hx Bipolar Disorder, Hx of Violent Episodes Against Others - Surgical History Surgery Procedure, Year, and Place: Full tooth extraction of all teeth- approximately 10 years ago - Immunization History Immunizations Up to Date: Yes Infectious Disease History: No Infectious Disease History: Denies: Traveled Outside the [place] in Last 30 Days - Family History Known Family History: Positive: Other - depression, anxiety - Social History Occupation: Disabled Lives: Alone Alcohol Use: None Alcohol Amount: 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 Hx Substance Use: Yes - on suboxone currently Substance Use Type: Reports: None Substance Use Comment - Amount & Last Used: Pt reports being sober of heroin for six months-uses suboxone now Hx Tobacco Use: No Smoking Status (MU): Never Smoked Tobacco Amount Used/How Often: Never used tobacco Length of Time of Smoking/Using Tobacco: never used tobacco Have You Smoked in the Last Year: No - never smoked Review of Systems Negative: Fever Positive: no symptoms reported Positive: Anxious, Depressed, Other - SI with plan All Other Systems Reviewed And Are Negative: Yes Physical Exam - Summary Physical Exam Summary: GENERAL: Patient is a well-developed and nourished M who is lying comfortable in the stretcher. Patient is not in any acute respiratory distress. HEAD AND FACE: Normocephalic EYES: PERRLA, EOMI x 2. EARS: Hearing grossly intact. MOUTH: Oropharynx within normal limits. NECK: Supple, trachea is midline, no adenopathy, no JVD, no carotid bruit. CHEST: Symmetric, no tenderness at palpation LUNGS: Clear to auscultation bilaterally. No wheezing or crackles. CVS: Regular rate and rhythm, S1 and S2 present, no murmurs or gallops appreciated. ABDOMEN: Soft, non-tender. Bowel sounds are normal. No abdominal abnormal pulsations. EXTREMITIES: Full ROM in all major joints, no edema, no cyanosis or clubbing. NEURO: Alert and oriented x 3. No acute neurological deficits. Speech is normal and follows commands. SKIN: Dry and warm PSYCH: SI and flat affect Triage Information Reviewed: Yes Vital Signs On Initial Exam: Initial Vitals Temp Pulse Resp BP Pulse Ox 97.5 F 116 14 119/73 99 07/04/18 16:39 07/04/18 16:39 07/04/18 16:39 07/04/18 16:39 07/04/18 16:39 Vital Signs Reviewed: Yes Diagnostics - Vital Signs Vital Signs Temp Pulse Resp BP Pulse Ox 07/04/18 16:39 97.5 F 116 14 119/73 99 - Laboratory Lab Results: Lab Results 07/04/18 07/04/18 Range/Units 17:09 17:25 WBC 6.8 (3.5-10.8) 10^3/ul RBC 5.21 (4.00-5.40) 10^6/ul Hgb 13.6 L (14.0-18.0) g/dl Hct 41 L (42-52) % MCV 79 L (80-94) fL MCH 26 L (27-31) pg MCHC 33 (31-36) g/dl RDW 14 (10.5-15) % Plt Count 218 (150-450) 10^3/ul MPV 7.0 L (7.4-10.4) um3 Neut % (Auto) 74.0 (38-83) % Lymph % (Auto) 18.7 L (25-47) % [place] % (Auto) 6.3 (0-7) % Eos % (Auto) 0.6 (0-6) % Baso % (Auto) 0.4 (0-2) % Absolute Neuts (auto) 5.0 (1.5-7.7) 10^3/ul Absolute Lymphs (auto) 1.3 (1.0-4.8) 10^3/ul Absolute Monos (auto) 0.4 (0-0.8) 10^3/ul Absolute Eos (auto) 0 (0-0.6) 10^3/ul Absolute Basos (auto) 0 (0-0.2) 10^3/ul Absolute Nucleated RBC 0 10^3/ul Nucleated RBC % 0 Urine Color Yellow Urine Appearance Clear Urine pH 5.0 (5-9) Ur Specific [place] 1.020 (1.010-1.030) Urine Protein Negative (Negative) Urine Ketones 1+ A (Negative) Urine Blood Negative (Negative) Urine Nitrate Negative (Negative) Urine Bilirubin Negative (Negative) Urine Urobilinogen Negative (Negative) Ur Leukocyte Esterase Negative (Negative) Urine Glucose Negative (Negative) Result Diagrams: 07/07/18 07:30 07/04/18 17:26 Lab Statement: Any lab studies that have been ordered have been reviewed, and results considered in the medical decision making process. Re-Evaluation - Re-Evaluation First Eval Re-Evaluation Time: 20:49 Change: Improved Comment: Pt stable enough to be taken off of 1:1 observation. Course/Dx - Course Course Of Treatment: A 42-year-old M presents to the ED with a CC of SI with a plan since last week. (+) depression, anxiety, constantly worsening and more vivid thoughts of suicide. (-) HI and hallucinations. Numerous previous psych admissions, previous suicide attempt 1 year ago. PMHx panic disorder, his anxiety is leading to his worsening SI. He states that last night sx were reese worst, and he nearly acted on his SI. In the ED course, pt was given . Pt shows low H&H and low lymph %, and a (-) tox screen. - Differential Dx/Clinical Impression Provider Diagnosis: MDD (major depressive disorder), recurrent severe, without psychosis Discharge - Sign-Out/Discharge Documenting (check all that apply): Sign-Out Patient Signing out patient TO: Gideon Richardson [facility] - Discharge Plan Condition: Fair Disposition: ADMITTED TO [facility] - Billing Disposition and Condition Condition: FAIR Disposition: Admitted to [facility] - Attestation Statements Document Initiated by Daxae: Yes Documenting Scribe: Alonso Schmid Provider For Whom Sameer is Documenting (Include Credential): Dr. Erin Jeffries MD Scribe Attestation: Alonso Lang scrclaudyed for Dr. Erin Jeffries MD on 07/07/18 at 0803. Scribe Documentation Reviewed: Yes Provider Attestation: The documentation as recorded by the Alonso brand accurately reflects the service I personally performed and the decisions made by me, Dr. Erin Jeffries MD
[2018-07-04 18:11] LABS: EGFR Non-African American 69.7 (>60)
[2018-07-04] MEDS ORDERED: Mirtazapine TAB* 15 MG PO ONE (21:18)
[2018-07-04] MEDS ORDERED: LORazepam TAB(*) 1 MG PO ONE (21:18)
[2018-07-04] MEDS ORDERED: Acetaminophen TAB* 325 MG PO ONE (23:46)
[2018-07-05] MEDS ORDERED: Ondansetron ODT TAB* 4 MG PO ONE (04:57)
--- NOTE | 2018-07-05 05:45 | ED ---
Progress - Progress Note Progress Note: The patient had been medically cleared and signed out to me while in mental health receiving mental health evaluation. Following the mental health/crisis evaluation is elected by the psychiatrist that the patient be admitted for further treatment. A bed was available here and he was admitted voluntarily. - Consult/PCP Time Called: 03:00 Re-Evaluation - Re-Evaluation First Eval Re-Evaluation Time: 20:49 Change: Improved Comment: Pt stable enough to be taken off of 1:1 observation. Course/Dx - Course Course Of Treatment: A 42-year-old M presents to the ED with a CC of SI with a plan since last week. (+) depression, anxiety, constantly worsening and more vivid thoughts of suicide. (-) HI and hallucinations. Numerous previous psych admissions, previous suicide attempt 1 year ago. PMHx panic disorder, his anxiety is leading to his worsening SI. He states that last night sx were reese worst, and he nearly acted on his SI. In the ED course, pt was given . Pt shows low H&H and low lymph %, and a (-) tox screen. - Diagnoses Provider Diagnoses: MDD (major depressive disorder), recurrent severe, without psychosis Discharge - Sign-Out/Discharge Documenting (check all that apply): Patient Departure - Discharge Plan Condition: Fair Disposition: ADMITTED TO [facility] - Billing Disposition and Condition Condition: FAIR Disposition: Admitted to [facility] - Attestation Statements Document Initiated by Scribe: No
[2018-07-05] MEDS ORDERED: Buprenorphine/Naloxone 8-2 MG SL TAB* 1 TAB ONE (07:08)
[2018-07-05] MEDS ORDERED: Acetaminophen TAB* 325 MG PO PRN (07:27)
[2018-07-05] MEDS ORDERED: Al Hydrox/Mg Hydrox/Simet LIQ* 30 ML UDC PO PRN (07:27)
[2018-07-05] MEDS ORDERED: LORazepam TAB(*) 0.5 MG PO PRN (07:31)
[2018-07-05] MEDS ORDERED: LORazepam TAB(*) 0.5 MG ONE (07:38)
[2018-07-05] MEDS: Vitamin THERAPEUTIC TAB PO SCH (09:50)
[2018-07-05] MEDS: Ondansetron ODT TAB* 4 MG PO PRN (14:10)
[2018-07-05] MEDS: DULoxetine DR CAP* 60 MG CAP.DR PO SCH (16:31)
[2018-07-05] MEDS: LORazepam TAB(*) 0.5 MG PO PRN (16:32)
[2018-07-05] MEDS ORDERED: Buprenorphine/Naloxone 8-2 MG SL TAB* 1 TAB PO ONE (21:41)
--- NOTE | 2018-07-05 21:41 | HP ---
HISTORY AND PHYSICAL: DATE OF ADMISSION: 07/05/18 PROVIDER: Cindy Quigley NP, in Psychiatry. SUPERVISING PHYSICIAN: Alvaro Barajas MD * (DICTATED BY CINDY QUIGLEY NP ) JUSTIFICATION FOR ADMISSION: The patient is in need of 24-hour supervision and care secondary to suicidal ideation and 4 previous suicide attempts. CHIEF COMPLAINT: "Anxiety triggers everything, it won't stop, that is what is going on." HISTORY OF PRESENT ILLNESS: The patient is a 42-year-old single white male with a history of high anxiety and depression, who arrives by his own father's car and is on a voluntary status following suicidal urges that are becoming stronger and he feels as though he cannot avoid them any longer. He has been wanting to act on his suicidal thoughts. He wants to jump off an 8th story building. He wants to step out of car. He feels like this exacerbation of symptoms has come out of the blue. He feels like he does not want to be around and he also does not want to feel this way, thus he does not want to live. When I ask him about his anxiety as he does not appear to be anxious, he states that it feels like impending doom and waiting for disaster. He states this has been going on since elementary school and that he was diagnosed at 20 with depression, anxiety, phobias, etc. He also endorses PTSD as he was bullied by teachers calling him stupid. He states that he graduated close to the top of his class. He cannot name his stressors. He does not know what has changed. He does endorse not leaving his house very much, at times not eating well because of his agoraphobia. He is not sleeping well. He is not interested in anything. He feels guilt for not leaving up to the standards of his father. His energy is low. His appetite is poor. He also appears to have a stomach virus right now. PAST PSYCHIATRIC HISTORY: Rakesh has more than 20 past hospitalizations for depression, anxiety and panic, suicidal ideation and 4 attempts including 2 wrist lacerations and 2 lacerations to his neck including once when he almost required a blood transfusion, which he appears somewhat proud of. He does not have access to weapons such as guns, but he does have access to knives. He denies a traumatic past other than being bullied by teachers. His previous psychiatric med list is quite long including Zoloft, Depakote, lithium, Prozac, Paxil, BuSpar, Viibryd, Effexor XR, and Wellbutrin. Currently, he is taking Suboxone 8 b.i.d., Ativan 0.5 q.6 hours, Cymbalta 90 he believes, Seroquel 150 at bedtime, and Remeron. SUBSTANCE ABUSE HISTORY: He does not drink alcohol, does not smoke cigarettes or use chew, does not use any recreational or illegal drugs. FAMILY HISTORY: He believes his father may be anxious and his mother understands his anxiety as well. SOCIAL HISTORY: He was born in [place] and went to school there and graduated from high school there. Abuse, he was bullied. Education, he went to high school. He had a girlfriend. He broke up with her 4 years ago. He does not have a roommate at this time. He is unemployed right now because he is on disability. He used to own tattoo shoes. Has never been in the . Has no legal problems. REVIEW OF SYSTEMS: The patient reports being fatigued. He denies shortness of breath, heat or cold intolerance, and chest pain. He does have abdominal pain and has been nauseated all day. Zofran has not been helpful. He denies neurological symptoms. Denies fevers or changes in weight. PHYSICAL EXAMINATION VITAL SIGNS: On 07/04/18 at 1639, temperature was 97.5, pulse was 116 which 4 hours later was reduced to 89, respirations were 14, O2 sat 99%, blood pressure 119/73. For further exam data, please see emergency department records. LABORATORY DATA: The irregularities include hemoglobin at 13.6, hematocrit at 41, MCV at 79, MCH at 26, MPV is 7.0, lymph percentage at 18.7; these are all low. Chloride is low at 100. Incidentally, his hemoglobin A1c is 5.4. His TSH is 3.75. Triglycerides are 75, cholesterol 176, LDL cholesterol 124, HDL cholesterol 37.4. MENTAL STATUS EXAMINATION: This is a slim man whose body is he states almost entirely covered in tattoos including some on his face and many on his neck. He is cooperative. He appears worried, but is generally calm, although he advocates that internally he is incredibly anxious, although he cannot state exactly what those symptoms are. He does endorse somatic symptoms such as rapid heartbeat, throat tightness, and somatic things of that sort. His speech is of a normal rate and tone. His volume is soft. He is dysthymic. He has a full range of affect, at times tearful and at other times managing to make a smile. His thought processes are logical. This thought content is clear. He is suicidal. He is not homicidal. He is not having any hallucinations. His insight is good. His judgement is fair to poor. He is alert and oriented x3. DIAGNOSES: [place] I: Major depressive disorder, generalized anxiety disorder, panic disorder, posttraumatic stress disorder. [place] II: Deferred. [place] III: Fibromyalgia and sciatic nerve pain. IMPRESSION: This is a 42-year-old man who endorses high anxiety and intense sadness that leads him to want to end his life. He is uncertain of what has caused this exacerbation of symptoms, but he does seem genuinely anxious and unhappy. PLAN: The patient is admitted to the adult behavioral health unit and placed on q.15-minute checks for his own safety. The patient is encouraged to participate in supportive milieu, individual, and group therapies. Estimated length of stay is 5 to 7 days. We will titrate medications to efficacy and monitor for mood and thought content. Discharge planning will include outpatient providers. CINDY QUIGLEY NP [id number]/CPS #: [id number] [place]
[2018-07-05] MEDS: Mirtazapine TAB* 15 MG PO SCH (21:54)
[2018-07-05] MEDS: QUEtiapine TAB* 25 MG PO SCH (21:55)
[2018-07-05] MEDS: QUEtiapine TAB* 100 MG PO SCH (21:56)
[2018-07-05] MEDS: Buprenorphine/Naloxone 8-2 MG SL TAB* 1 TAB SL SCH (21:57)
[2018-07-06] MEDS: DULoxetine DR CAP* 60 MG CAP.DR PO SCH (13:42)
[2018-07-06] MEDS: Vitamin THERAPEUTIC TAB PO SCH (13:42)
[2018-07-06] MEDS: Buprenorphine/Naloxone 8-2 MG SL TAB* 1 TAB SL SCH ×2 (13:42→21:36)
--- NOTE | 2018-07-06 13:47 | PN ---
Subjective - Subjective Date of Service: 07/06/18 Service Type: 93921 Hosp care 15 min low complexity Subjective: Rakesh is ill with a GI problem. A hospitalist has been called and he ordered an abdominal CT with contrast, a urinalysis, and to repeat the CBC and CMP. Rakesh still is focused on how sad and anxious he is. He is struggling through the physical discomfort which may be exacerbating the emotional discomfort he is in. Objective - Appearance Appearance: Thin Framed Dysmorphic Features: No Hygiene: Normal Grooming: Disheveled - Behavior Psychomotor Activities: Normal Exhibits Abnormal Movement: No - Attitude and Relatedness Attitude and Relatedness: Withdrawn Eye Contact: Poor - Speech Quality: Unpressured Latencies: Normal Quantity: Terse - Mood Patient's Decription of Mood: "Sad" - Affect Observed Affect: Depressed Affect Consistent with: Dysphoria - Thought Process Patient's Thought Process: Coherent, Goal Directed Thought Content: Yes Passive Wish, Yes Suicidal Planning, No Homicidal Ideation, No Paranoid Ideation - Sensorium Experiencing Hallucinations: No, Sensorium is Clear Type of Hallucinations: Visual: No, Auditory: No, Command: No - Level of Consciousness Level of Consciousness: Alert Orientation: Yes Intact, Yes Orientated to Time, Yes Orientated to Place, Yes Orientated to Person - Impulse Control Impulse Control: Tenuous - Insight and Judgement Insight and Judgement: Fair - Group Participation Particating in Group Activities: No - Medication Management Medication Management Adherence: Yes - Additional Observations Comments: Rakesh appears sad and disheveled. He is focused on feeling bad, and it is fairly clear he does feel bad both physically and emotionally. Assessment - Assessment Merits Inpatient Hospitalization: For Immediate Safety Clinical Impression: Rakesh is physically ill at this time which is affecting his emotional composition at this time. He has major depressive disorder and panic disorder and PTSD. Plan - Plan Treatment Plan: Name: RAKESH KENNEDY Birthdate: 1975 [id number] Continued Medication Management: Different Medication Medications: Current Medications Acetaminophen (Tylenol Tab*) 650 mg PO Q4H PRN PRN Reason: PAIN or TEMP > 101 F Al Hydrox/Mg Hydrox/Simethicone (Maalox Plus*) 30 ml PO Q4H PRN PRN Reason: INDIGESTION Buprenorphine/Naloxone (Suboxone 8-2 Mg Sl Tab*) 1 tab.sl SL BID TAMMY Last Admin: 07/05/18 21:57 Dose: 1 tab.sl Duloxetine HCl (Cymbalta Cap*) 120 mg PO DAILY [facility] Last Admin: 07/05/18 16:31 Dose: 120 mg Lorazepam (Ativan Tab(*)) 0.5 mg PO Q6H PRN PRN Reason: ANXIETY Last Admin: 07/05/18 16:32 Dose: 0.5 mg Melatonin (Melatonin) 6 mg PO BEDTIME PRN PRN Reason: INSOMNIA Mirtazapine (Remeron Tab*) 30 mg PO BEDTIME [facility] Last Admin: 07/05/18 21:54 Dose: 30 mg Multivitamins (Theragran Tab*) 1 tab PO DAILY [facility] Last Admin: 07/05/18 09:50 Dose: Not Given Ondansetron HCl (Zofran Odt Tab*) 4 mg PO Q6H PRN PRN Reason: NAUSEA Last Admin: 07/05/18 14:10 Dose: 4 mg Quetiapine Fumarate (Seroquel Tab*) 100 mg PO BEDTIME TAMMY Last Admin: 07/05/18 21:56 Dose: 100 mg Quetiapine Fumarate (Seroquel Tab*) 50 mg PO BEDTIME [facility] Last Admin: 07/05/18 21:55 Dose: 50 mg Trazodone HCl (Desyrel Tab*) 50 mg PO BEDTIME PRN PRN Reason: SLEEP - Discharge Plan Discharge Plan: Outpatient Follow Up Additional Comments: We are starting clonidine 0.1 mg twice daily to address panic and anxiety symptoms. We may look into increasing mirtazapine in the future.
[2018-07-06] MEDS: LORazepam TAB(*) 0.5 MG PO PRN (14:16)
[2018-07-06] MEDS ORDERED: Iohexol 300* (CONTRAST) 10 ML SDV IV ONE (14:29)
[2018-07-06 14:57] LABS: Urine Appearance Cloudy; Urine Blood Negative (Negative); Urine Color Yellow; Urine Ketones 2+ (Negative); Urine Protein 2+(100 mg/dL) (Negative); Urine Red Blood Cell 1+(3-5/hpf) (Absent); Urine Urobilinogen Negative (Negative); Urine White Blood Cell Trace(0-5/hpf) (Absent)
--- NOTE | 2018-07-06 16:11 | RAD ---
CLINICAL HISTORY: abd pain COMPARISON: None TECHNIQUE: Multiple contiguous axial CT scans were obtained of the abdomen and pelvis after the administration of intravenous contrast. Coronal and sagittal multiplanar reformations are submitted for review. Oral contrast was administered. Delayed images were obtained through the abdomen. FINDINGS: LUNG BASES: The lung bases are clear. LIVER: The liver is normal in shape, size, contour, and attenuation. BILE DUCTS: There is no intrahepatic or extrahepatic biliary dilatation. GALLBLADDER: The gallbladder is normal, without pericholecystic inflammatory change. PANCREAS: The pancreas is normal, without mass or ductal dilatation. SPLEEN: Normal in size and appearance. UPPER GI TRACT: Evaluation of the gastrointestinal tract is limited by incomplete gastric distention. There is mucosal thickening of the distal esophagus. The upper GI tract is unremarkable. SMALL BOWEL AND MESENTERY: The small bowel is normal in contour, course, and caliber. There is no obstruction or dilatation. COLON: The colon is normal in contour, course, caliber. There is no pericolonic inflammatory change. There is a tubular, vermiform, hollow viscus that is blind ending, and originates from the cecum, consistent with a normal appendix. There is no periappendiceal inflammatory change. ADRENALS: Normal bilaterally. KIDNEYS: The kidneys are normal in shape, size, contour, and axis. There is no hydronephrosis or nephrolithiasis. BLADDER: The bladder is smooth in contour. PELVIC ORGANS: The prostate gland is normal. The seminal vesicles are symmetric. AORTA: The aorta is normal. IVC: Unremarkable LYMPH NODES: There is no lymphadenopathy by size criteria. ABDOMINAL WALL: There is no evidence for abdominal wall hernia. BONES AND SOFT TISSUES: Unremarkable OTHER: None IMPRESSION: MUCOSAL THICKENING OF THE DISTAL ESOPHAGUS WHICH CAN BE SEEN WITH ESOPHAGITIS. CONSIDER CORRELATION WITH DIRECT VISUALIZATION OR DEDICATED IMAGING OF THE ESOPHAGUS.
[2018-07-06] MEDS: Mirtazapine TAB* 15 MG PO SCH (21:36)
[2018-07-06] MEDS: QUEtiapine TAB* 100 MG PO SCH (21:36)
[2018-07-06] MEDS: Omeprazole CAP* 20 MG PO SCH (21:36)
[2018-07-06] MEDS: cloNIDine TAB* 0.1 MG PO SCH (21:37)
[2018-07-06] MEDS: QUEtiapine TAB* 25 MG PO SCH (21:37)
[2018-07-07] MEDS: Omeprazole CAP* 20 MG PO SCH ×2 (07:27→17:37)
[2018-07-07 07:49] LABS: ABS Basophils 0 10^3/ul (0-0.2); ABS Eosinophils 0.2 10^3/ul (0-0.6); ABS Lymphocytes 2.4 10^3/ul (1.0-4.8); ABS Monocytes 1.1 10^3/ul (0-0.8); ABS Neutrophils 7.8 10^3/ul (1.5-7.7); ABS Nucleated RBC 0 10^3/ul; Eosinophil % 1.3 % (0-6); Hematocrit 44 % (42-52); Hemoglobin 14.6 g/dl (14.0-18.0); Lymphocyte % 20.9 % (25-47); Mean Corpuscular HGB Conc 34 g/dl (31-36); Mean Corpuscular Hemoglobin 27 pg (27-31); Mean Corpuscular Volume 80 fL (80-94); Mean Platelet Volume 7.1 um3 (7.4-10.4); Nucleated Red Blood Cells % 0.1; Platelet Count 256 10^3/ul (150-450); Red Cell Distribution Width 15 % (10.5-15); White Blood Count 11.5 10^3/ul (3.5-10.8)
[2018-07-07 08:08] LABS: EGFR Non-African American 81.8 (>60)
[2018-07-07] MEDS: Vitamin THERAPEUTIC TAB PO SCH (10:01)
[2018-07-07] MEDS: cloNIDine TAB* 0.1 MG PO SCH ×2 (10:01→20:37)
[2018-07-07] MEDS: DULoxetine DR CAP* 60 MG CAP.DR PO SCH (10:01)
[2018-07-07] MEDS: LORazepam TAB(*) 0.5 MG PO PRN ×2 (10:01→20:37)
[2018-07-07] MEDS: Ondansetron ODT TAB* 4 MG PO PRN (10:01)
[2018-07-07] MEDS: Buprenorphine/Naloxone 8-2 MG SL TAB* 1 TAB SL SCH ×2 (10:15→20:37)
[2018-07-07] MEDS: Mirtazapine TAB* 15 MG PO SCH (20:36)
[2018-07-07] MEDS: QUEtiapine TAB* 100 MG PO SCH (20:37)
[2018-07-07] MEDS: QUEtiapine TAB* 25 MG PO SCH (20:37)
[2018-07-08] MEDS: cloNIDine TAB* 0.1 MG PO SCH ×2 (09:18→20:14)
[2018-07-08] MEDS: Omeprazole CAP* 20 MG PO SCH ×2 (09:18→16:27)
[2018-07-08] MEDS: Buprenorphine/Naloxone 8-2 MG SL TAB* 1 TAB SL SCH ×2 (09:18→20:14)
[2018-07-08] MEDS: DULoxetine DR CAP* 60 MG CAP.DR PO SCH (09:18)
[2018-07-08] MEDS: Vitamin THERAPEUTIC TAB PO SCH (09:18)
[2018-07-08] MEDS: LORazepam TAB(*) 0.5 MG PO PRN ×3 (09:26→22:27)
--- NOTE | 2018-07-08 17:39 | PN ---
Subjective - Subjective Date of Service: 07/08/18 Service Type: [id number] Hosp care 15 min low complexity Subjective: Rakesh was in bed most of the time and says he has panic d/o. Always anxious, sad and tired. Doesn't have motivation to get out of bed. Was thinking more about suicide with plans to jump through the window which he is unable to do here. Denies hallucinations or delusions. Objective - Appearance Appearance: Thin Framed Dysmorphic Features: No Hygiene: Mal-odorous Grooming: Disheveled - Behavior Psychomotor Activities: Abnormal-Decreased Exhibits Abnormal Movement: No - Attitude and Relatedness Attitude and Relatedness: Appropriate Eye Contact: Poor - Speech Quality: Unpressured Latencies: Normal Quantity: Appropriate - Mood Patient's Decription of Mood: "Anxious" - Affect Observed Affect: Constricted - Thought Process Patient's Thought Process: Coherent, Circumstantial Thought Content: Yes Passive Wish, Yes Suicidal Planning, No Homicidal Ideation, No Paranoid Ideation - Sensorium Experiencing Hallucinations: No, Sensorium is Clear Type of Hallucinations: Visual: No, Auditory: No, Command: No - Level of Consciousness Level of Consciousness: Alert Orientation: Yes Intact, Yes Orientated to Time, Yes Orientated to Place, Yes Orientated to Person - Impulse Control Impulse Control: Tenuous - Insight and Judgement Insight and Judgement: Impaired - Group Participation Particating in Group Activities: No - Medication Management Medication Management Adherence: Yes Assessment - Assessment Merits Inpatient Hospitalization: For Immediate Safety, For Stabilization, Pending Safe DC Plan Clinical Impression: Rakesh is physically ill at this time which is affecting his emotional composition at this time. He has major depressive disorder and panic disorder and PTSD. Plan - Plan Treatment Plan: Name: RAKESH KNENEDY Birthdate: 1975 [id number] Continued Medication Management: Continue Outpt Medication Medications: Current Medications Acetaminophen (Tylenol Tab*) 650 mg PO Q4H PRN PRN Reason: PAIN or TEMP > 101 F Al Hydrox/Mg Hydrox/Simethicone (Maalox Plus*) 30 ml PO Q4H PRN PRN Reason: INDIGESTION Buprenorphine/Naloxone (Suboxone 8-2 Mg Sl Tab*) 1 tab.sl SL BID [facility] Last Admin: 07/08/18 09:18 Dose: 1 tab.sl Clonidine HCl (Catapres Tab*) 0.1 mg PO BID [facility] Last Admin: 07/08/18 09:18 Dose: 0.1 mg Duloxetine HCl (Cymbalta Cap*) 120 mg PO DAILY [facility] Last Admin: 07/08/18 09:18 Dose: 120 mg Lorazepam (Ativan Tab(*)) 0.5 mg PO Q6H PRN PRN Reason: ANXIETY Last Admin: 07/08/18 16:26 Dose: 0.5 mg Melatonin (Melatonin) 6 mg PO BEDTIME PRN PRN Reason: INSOMNIA Mirtazapine (Remeron Tab*) 30 mg PO BEDTIME [facility] Last Admin: 07/07/18 20:36 Dose: 30 mg Multivitamins (Theragran Tab*) 1 tab PO DAILY [facility] Last Admin: 07/08/18 09:18 Dose: 1 tab Omeprazole (Prilosec Cap*) 20 mg PO BID@0730,1630 [facility] Last Admin: 07/08/18 16:27 Dose: 20 mg Ondansetron HCl (Zofran Odt Tab*) 4 mg PO Q6H PRN PRN Reason: NAUSEA Last Admin: 07/07/18 10:01 Dose: 4 mg Quetiapine Fumarate (Seroquel Tab*) 100 mg PO BEDTIME [facility] Last Admin: 07/07/18 20:37 Dose: 100 mg Quetiapine Fumarate (Seroquel Tab*) 50 mg PO BEDTIME [facility] Last Admin: 07/07/18 20:37 Dose: 50 mg Trazodone HCl (Desyrel Tab*) 50 mg PO BEDTIME PRN PRN Reason: SLEEP - Discharge Plan Discharge Plan: [facility]
[2018-07-08] MEDS: QUEtiapine TAB* 100 MG PO SCH (20:14)
[2018-07-08] MEDS: Mirtazapine TAB* 15 MG PO SCH (20:14)
[2018-07-08] MEDS: QUEtiapine TAB* 25 MG PO SCH (20:14)
[2018-07-09] MEDS: Omeprazole CAP* 20 MG PO SCH ×2 (09:53→16:14)
[2018-07-09] MEDS: LORazepam TAB(*) 0.5 MG PO PRN (09:53)
[2018-07-09] MEDS: Vitamin THERAPEUTIC TAB PO SCH (09:53)
[2018-07-09] MEDS: cloNIDine TAB* 0.1 MG PO SCH ×2 (09:53→20:33)
[2018-07-09] MEDS: Buprenorphine/Naloxone 8-2 MG SL TAB* 1 TAB SL SCH ×2 (09:53→20:33)
[2018-07-09] MEDS: DULoxetine DR CAP* 60 MG CAP.DR PO SCH (09:53)
--- NOTE | 2018-07-09 16:06 | PN ---
Subjective - Subjective Date of Service: 07/09/18 Service Type: 95002 Hosp care 35 min high complexity Subjective: Rakesh is starting to feel better physically. He's started to venture out of his room and listen to music in the milieu. He continues to endorse high anxiety and advocate for increased dose of Ativan. He's begun to eat more food and states he's hungry. Objective - Appearance Appearance: Thin Framed Dysmorphic Features: No Hygiene: Normal Grooming: Fairly Well Kept - Behavior Psychomotor Activities: Normal Exhibits Abnormal Movement: No - Attitude and Relatedness Attitude and Relatedness: Withdrawn Eye Contact: Fair - Speech Quality: Unpressured Latencies: Normal Quantity: Appropriate - Mood Patient's Decription of Mood: "Anxious" - Affect Observed Affect: Constricted Affect Consistent with: Dysphoria - Thought Process Patient's Thought Process: Coherent, Goal Directed Thought Content: Yes Passive Wish, Yes Suicidal Planning, No Homicidal Ideation, No Paranoid Ideation - Sensorium Experiencing Hallucinations: No, Sensorium is Clear Type of Hallucinations: Visual: No, Auditory: No, Command: No - Level of Consciousness Level of Consciousness: Alert Orientation: Yes Intact, Yes Orientated to Time, Yes Orientated to Place, Yes Orientated to Person - Impulse Control Impulse Control: Tenuous - Insight and Judgement Insight and Judgement: Fair - Group Participation Particating in Group Activities: No - Medication Management Medication Management Adherence: Yes - Additional Observations Comments: Rakesh appears sad and disheveled. He is having a hard time with his anxiety, mainly. He feels helpless to control the anxiety. 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 He is unable to manage his anxiety without medication and the medication does not seem to have sufficient effect. Plan - Plan Treatment Plan: Name: RAKESH KENNEDY Birthdate: 1975 [id number] Continued Medication Management: Different Medication Medications: Current Medications Acetaminophen (Tylenol Tab*) 650 mg PO Q4H PRN PRN Reason: PAIN or TEMP > 101 F Al Hydrox/Mg Hydrox/Simethicone (Maalox Plus*) 30 ml PO Q4H PRN PRN Reason: INDIGESTION Buprenorphine/Naloxone (Suboxone 8-2 Mg Sl Tab*) 1 tab.sl SL BID [facility] Last Admin: 07/09/18 09:53 Dose: 1 tab.sl Clonidine HCl (Catapres Tab*) 0.1 mg PO BID [facility] Last Admin: 07/09/18 09:53 Dose: 0.1 mg Duloxetine HCl (Cymbalta Cap*) 120 mg PO DAILY [facility] Last Admin: 07/09/18 09:53 Dose: 120 mg Lorazepam (Ativan Tab(*)) 1 mg PO Q6H PRN PRN Reason: ANXIETY Melatonin (Melatonin) 6 mg PO BEDTIME PRN PRN Reason: INSOMNIA Mirtazapine (Remeron Tab*) 30 mg PO BEDTIME [facility] Last Admin: 07/08/18 20:14 Dose: 30 mg Multivitamins (Theragran Tab*) 1 tab PO DAILY [facility] Last Admin: 07/09/18 09:53 Dose: 1 tab Omeprazole (Prilosec Cap*) 20 mg PO BID@0730,1630 [facility] Last Admin: 07/09/18 09:53 Dose: 20 mg Ondansetron HCl (Zofran Odt Tab*) 4 mg PO Q6H PRN PRN Reason: NAUSEA Last Admin: 07/07/18 10:01 Dose: 4 mg Quetiapine Fumarate (Seroquel Tab*) 100 mg PO BEDTIME [facility] Last Admin: 07/08/18 20:14 Dose: 100 mg Quetiapine Fumarate (Seroquel Tab*) 50 mg PO BEDTIME [facility] Last Admin: 07/08/18 20:14 Dose: 50 mg Trazodone HCl (Desyrel Tab*) 50 mg PO BEDTIME PRN PRN Reason: SLEEP - Discharge Plan Discharge Plan: Inpatient Hospitalization Additional Comments: We are starting clonidine 0.1 mg twice daily to address panic and anxiety symptoms. We may look into increasing mirtazapine in the future. In addition we are increasing Ativan to 1 mg. He agrees that this will only be while in hospital. We are looking toward sending him to the [facility] in the future and will be converting his legal status to 2PC.
[2018-07-09] MEDS: LORazepam TAB(*) 1 MG PO PRN ×2 (16:15→22:18)
[2018-07-09] MEDS: Mirtazapine TAB* 15 MG PO SCH (20:33)
[2018-07-09] MEDS: QUEtiapine TAB* 25 MG PO SCH (20:34)
[2018-07-09] MEDS: QUEtiapine TAB* 100 MG PO SCH (20:34)
[2018-07-10] MEDS: Omeprazole CAP* 20 MG PO SCH ×2 (10:19→16:08)
[2018-07-10] MEDS: Vitamin THERAPEUTIC TAB PO SCH (10:19)
[2018-07-10] MEDS: LORazepam TAB(*) 1 MG PO PRN ×2 (10:20→16:45)
[2018-07-10] MEDS: cloNIDine TAB* 0.1 MG PO SCH ×2 (10:20→20:16)
[2018-07-10] MEDS: Buprenorphine/Naloxone 8-2 MG SL TAB* 1 TAB SL SCH ×2 (10:21→20:16)
[2018-07-10] MEDS: DULoxetine DR CAP* 60 MG CAP.DR PO SCH (10:21)
--- NOTE | 2018-07-10 13:33 | PN ---
Subjective - Subjective Date of Service: 07/10/18 Service Type: [id number] Hosp care 25 min moderate complexity Subjective: Rakesh is doing better today. He had two toasted cheese sandwiches and some soup today: his stomach is feeling much better. He states he can't concentrate enough to read. He'd like to look at the tv in the milieu, but does not have his glasses and therefore cannot see the images presented clearly enough to enjoy them. We talk about his mom, who he seems to adore, but he says she has a lot of health problems and he feels like he's semi-responsible for two strokes/ cardiac events, even though he's been told otherwise. Objective - Appearance Appearance: Thin Framed Dysmorphic Features: No Hygiene: Normal Grooming: Well Kept - Behavior Psychomotor Activities: Normal Exhibits Abnormal Movement: No - Attitude and Relatedness Attitude and Relatedness: Well Related Eye Contact: Poor - Speech Quality: Unpressured Latencies: Normal Quantity: Appropriate - Mood Patient's Decription of Mood: "Anxious" - Affect Observed Affect: Constricted Affect Consistent with: Dysphoria - Thought Process Patient's Thought Process: Coherent Thought Content: Yes Passive Wish, No Suicidal Planning, No Homicidal Ideation, No Paranoid Ideation - Sensorium Experiencing Hallucinations: No, Sensorium is Clear Type of Hallucinations: Visual: No, Auditory: No, Command: No - Level of Consciousness Level of Consciousness: Alert Orientation: Yes Intact, Yes Orientated to Time, Yes Orientated to Place, Yes Orientated to Person - Impulse Control Impulse Control: Tenuous - Insight and Judgement Insight and Judgement: Fair - Group Participation Particating in Group Activities: No - Medication Management Medication Management Adherence: Yes - Additional Observations Comments: Rakesh appears sad but is better groomed today. He doesn't feel like he is as well groomed as he used to be, but he doesn't care anymore. He is focused on feeling bad, and it is fairly clear he does feel bad emotionally, although he is feeling physically more well. There is a hint of a smile at times, but he is so distressed by his thoughts that it doesn't last long. Assessment - Assessment Merits Inpatient Hospitalization: For Immediate Safety, For Discharge Planning Clinical Impression: Rakesh has major depressive disorder and panic disorder. He is feeling more physically well and that means he comes out of his room more, but he remains unable to interact with others effectively. 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 Plan - Plan Treatment Plan: Name: RAKESH KENNEDY Birthdate: 1975 [id number] Continued Medication Management: Different Medication Medications: Current Medications Acetaminophen (Tylenol Tab*) 650 mg PO Q4H PRN PRN Reason: PAIN or TEMP > 101 F Al Hydrox/Mg Hydrox/Simethicone (Maalox Plus*) 30 ml PO Q4H PRN PRN Reason: INDIGESTION Buprenorphine/Naloxone (Suboxone 8-2 Mg Sl Tab*) 1 tab.sl SL BID [facility] Last Admin: 07/10/18 10:21 Dose: 1 tab.sl Clonidine HCl (Catapres Tab*) 0.1 mg PO BID [facility] Last Admin: 07/10/18 10:20 Dose: 0.1 mg Duloxetine HCl (Cymbalta Cap*) 120 mg PO DAILY [facility] Last Admin: 07/10/18 10:21 Dose: 120 mg Lorazepam (Ativan Tab(*)) 1 mg PO Q6H PRN PRN Reason: ANXIETY Last Admin: 07/10/18 10:20 Dose: 1 mg Melatonin (Melatonin) 6 mg PO BEDTIME PRN PRN Reason: INSOMNIA Mirtazapine (Remeron Tab*) 30 mg PO BEDTIME [facility] Last Admin: 07/09/18 20:33 Dose: 30 mg Multivitamins (Theragran Tab*) 1 tab PO DAILY [facility] Last Admin: 07/10/18 10:19 Dose: 1 tab Omeprazole (Prilosec Cap*) 20 mg PO BID@0730,1630 [facility] Last Admin: 07/10/18 10:19 Dose: 20 mg Ondansetron HCl (Zofran Odt Tab*) 4 mg PO Q6H PRN PRN Reason: NAUSEA Last Admin: 07/07/18 10:01 Dose: 4 mg Quetiapine Fumarate (Seroquel Tab*) 100 mg PO BEDTIME [facility] Last Admin: 07/09/18 20:34 Dose: 100 mg Quetiapine Fumarate (Seroquel Tab*) 50 mg PO BEDTIME [facility] Last Admin: 07/09/18 20:34 Dose: 50 mg Trazodone HCl (Desyrel Tab*) 50 mg PO BEDTIME PRN PRN Reason: SLEEP - Discharge Plan Discharge Plan: Consider Longer Term Tx Additional Comments: We are starting clonidine 0.1 mg twice daily to address panic and anxiety symptoms. We may look into increasing mirtazapine in the future. As it stands, Rakesh is unable to tolerate most situations on the unit, including interacting with most people. He tends to isolate to an extreme which seems to have the effect of making him feel less anxious but more full of despair. We are looking into sending him to [facility] for a more rehabilitative approach, rather than the crisis approaches he has been receiving from the acute care hospitals he has been attending.
[2018-07-10] MEDS: QUEtiapine TAB* 25 MG PO SCH (20:15)
[2018-07-10] MEDS: QUEtiapine TAB* 100 MG PO SCH (20:16)
[2018-07-10] MEDS: Mirtazapine TAB* 15 MG PO SCH (20:16)
[2018-07-11] MEDS: Vitamin THERAPEUTIC TAB PO SCH (10:20)
[2018-07-11] MEDS: DULoxetine DR CAP* 60 MG CAP.DR PO SCH (10:20)
[2018-07-11] MEDS: cloNIDine TAB* 0.1 MG PO SCH ×2 (10:21→20:05)
[2018-07-11] MEDS: Buprenorphine/Naloxone 8-2 MG SL TAB* 1 TAB SL SCH ×2 (10:22→20:05)
[2018-07-11] MEDS: Omeprazole CAP* 20 MG PO SCH ×2 (10:22→16:47)
[2018-07-11] MEDS: LORazepam TAB(*) 1 MG PO PRN ×2 (10:22→16:47)
--- NOTE | 2018-07-11 14:46 | PN ---
Subjective - Subjective Date of Service: 07/11/18 Service Type: 13460 Hosp care 15 min low complexity Subjective: Dalia Hook and I met with antonio to discuss his change in legal status from Voluntary to 2PC. He was acceptiing of that news as well as the news that we would be referring him to the [facility] for a more rehabilitative stay. Objective - Appearance Appearance: Thin Framed Dysmorphic Features: No Hygiene: Normal Grooming: Fairly Well Kept - Behavior Psychomotor Activities: Normal Exhibits Abnormal Movement: No - Attitude and Relatedness Attitude and Relatedness: Cooperative Eye Contact: Fair - Speech Quality: Unpressured Latencies: Normal Quantity: Terse - Mood Patient's Decription of Mood: "Anxious" - Affect Observed Affect: Constricted Affect Consistent with: Dysphoria - Thought Process Patient's Thought Process: Coherent Thought Content: Yes Passive Wish, Yes Suicidal Planning, No Homicidal Ideation, No Paranoid Ideation - Sensorium Experiencing Hallucinations: No, Sensorium is Clear Type of Hallucinations: Visual: No, Auditory: No, Command: No - Level of Consciousness Level of Consciousness: Alert Orientation: Yes Intact, Yes Orientated to Time, Yes Orientated to Place, Yes Orientated to Person - Impulse Control Impulse Control: Tenuous - Insight and Judgement Insight and Judgement: Fair - Group Participation Particating in Group Activities: No - Medication Management Medication Management Adherence: Yes - Additional Observations Comments: Antonio appears sad. He is focused on feeling bad, and it is fairly clear he does feel bad emotionally, although he is feeling physically more well. There is a hint of a smile at times, but he is so distressed by his thoughts that it doesn't last long. He is compliant with medication advice and has stated he's feeling better with increased Ativan. Assessment - Assessment Merits Inpatient Hospitalization: For Immediate Safety Clinical Impression: Antonio has major depressive disorder and panic disorder. He is feeling more physically well and that means he comes out of his room more, but he remains unable to interact with others effectively. He comes in and out of his room throughout the day, mainly staying in bed. When asked how he is, he states "The brains are still shit." He is not improving psychiatrically, although he is safe on the unit. Plan - Plan Treatment Plan: Name: ANTONIO KENNEDY Birthdate: 1975 [id number] Medications: Current Medications Acetaminophen (Tylenol Tab*) 650 mg PO Q4H PRN PRN Reason: PAIN or TEMP > 101 F Al Hydrox/Mg Hydrox/Simethicone (Maalox Plus*) 30 ml PO Q4H PRN PRN Reason: INDIGESTION Buprenorphine/Naloxone (Suboxone 8-2 Mg Sl Tab*) 1 tab.sl SL BID [facility] Last Admin: 07/11/18 10:22 Dose: 1 tab.sl Clonidine HCl (Catapres Tab*) 0.1 mg PO BID [facility] Last Admin: 07/11/18 10:21 Dose: 0.1 mg Duloxetine HCl (Cymbalta Cap*) 120 mg PO DAILY [facility] Last Admin: 07/11/18 10:20 Dose: 120 mg Lorazepam (Ativan Tab(*)) 1 mg PO Q6H PRN PRN Reason: ANXIETY Last Admin: 07/11/18 10:22 Dose: 1 mg Melatonin (Melatonin) 6 mg PO BEDTIME PRN PRN Reason: INSOMNIA Mirtazapine (Remeron Tab*) 30 mg PO BEDTIME [facility] Last Admin: 07/10/18 20:16 Dose: 30 mg Multivitamins (Theragran Tab*) 1 tab PO DAILY [facility] Last Admin: 07/11/18 10:20 Dose: 1 tab Omeprazole (Prilosec Cap*) 20 mg PO BID@0730,1630 [facility] Last Admin: 07/11/18 10:22 Dose: 20 mg Ondansetron HCl (Zofran Odt Tab*) 4 mg PO Q6H PRN PRN Reason: NAUSEA Last Admin: 07/07/18 10:01 Dose: 4 mg Quetiapine Fumarate (Seroquel Tab*) 100 mg PO BEDTIME [facility] Last Admin: 07/10/18 20:16 Dose: 100 mg Quetiapine Fumarate (Seroquel Tab*) 50 mg PO BEDTIME [facility] Last Admin: 07/10/18 20:15 Dose: 50 mg Trazodone HCl (Desyrel Tab*) 50 mg PO BEDTIME PRN PRN Reason: SLEEP - Discharge Plan Discharge Plan: Consider Longer Term Tx Additional Comments: We are starting clonidine 0.1 mg twice daily to address panic and anxiety symptoms. As it stands, Antonio is unable to tolerate most situations on the unit , including interacting with most people. He tends to isolate to an extreme which seems to have the effect of making him feel less anxious but more full of despair. We are looking into sending him to [facility] for a more rehabilitative approach, rather than the crisis approaches he has been receiving from the acute care hospitals he has been attending. Antonio is agreeable to this choice and is encouraged that he might have a chance to feel better in the detention.
[2018-07-11] MEDS: Mirtazapine TAB* 15 MG PO SCH (20:04)
[2018-07-11] MEDS: QUEtiapine TAB* 100 MG PO SCH (20:05)
[2018-07-11] MEDS: QUEtiapine TAB* 25 MG PO SCH (20:07)
[2018-07-12] MEDS: DULoxetine DR CAP* 60 MG CAP.DR PO SCH (09:36)
[2018-07-12] MEDS: Vitamin THERAPEUTIC TAB PO SCH (09:37)
[2018-07-12] MEDS: Omeprazole CAP* 20 MG PO SCH ×2 (09:37→17:28)
[2018-07-12] MEDS: cloNIDine TAB* 0.1 MG PO SCH ×2 (09:37→20:14)
[2018-07-12] MEDS: LORazepam TAB(*) 1 MG PO PRN ×3 (09:37→23:31)
[2018-07-12] MEDS: Buprenorphine/Naloxone 8-2 MG SL TAB* 1 TAB SL SCH ×2 (09:37→20:16)
[2018-07-12] MEDS: Mirtazapine TAB* 15 MG PO SCH (20:14)
[2018-07-12] MEDS: QUEtiapine TAB* 25 MG PO SCH (20:15)
[2018-07-12] MEDS: QUEtiapine TAB* 100 MG PO SCH (20:15)
[2018-07-13] MEDS: Vitamin THERAPEUTIC TAB PO SCH (08:48)
[2018-07-13] MEDS: Buprenorphine/Naloxone 8-2 MG SL TAB* 1 TAB SL SCH ×2 (08:48→21:33)
[2018-07-13] MEDS: Omeprazole CAP* 20 MG PO SCH ×2 (08:48→16:55)
[2018-07-13] MEDS: DULoxetine DR CAP* 60 MG CAP.DR PO SCH (08:48)
[2018-07-13] MEDS: LORazepam TAB(*) 1 MG PO PRN ×3 (08:49→21:34)
[2018-07-13] MEDS: cloNIDine TAB* 0.1 MG PO SCH ×2 (08:49→21:33)
[2018-07-13] MEDS ORDERED: LORazepam TAB(*) 1 MG PO ONE (10:28)
--- NOTE | 2018-07-13 19:15 | PN ---
Subjective - Subjective Date of Service: 07/13/18 Service Type: [id number] Hosp care 15 min low complexity Subjective: Rakesh anticipated being discharged to [facility] today, but due to the need for Suboxone therapy and its lack of immediate availability, his discharge has been delayed until Monday or Monday. Rakesh was understanding of the delay , but his anxiety was increased due to the miscommunication. He was pleasant and understanding. He is actually positively anticipating his transfer the [facility] and is very hopeful that over time he will improve. I also spoke with his mother, Luci Kennedy, who is delighted that he will be receiving longer term treatment. She is highly anxious and is hopeful that many , many goal will be accomplished. Objective - Appearance Appearance: Thin Framed Dysmorphic Features: No Hygiene: Normal Grooming: Disheveled - Behavior Psychomotor Activities: Normal Exhibits Abnormal Movement: No - Attitude and Relatedness Attitude and Relatedness: Well Related Eye Contact: Poor - Speech Quality: Unpressured Latencies: Normal Quantity: Appropriate - Mood Patient's Decription of Mood: "Anxious" - Affect Observed Affect: Constricted Affect Consistent with: Dysphoria - Thought Process Patient's Thought Process: Coherent, Goal Directed Thought Content: Yes Passive Wish, No Suicidal Planning, No Homicidal Ideation, No Paranoid Ideation - Sensorium Experiencing Hallucinations: No, Sensorium is Clear Type of Hallucinations: Visual: No, Auditory: No, Command: No - Level of Consciousness Level of Consciousness: Agitated Orientation: Yes Intact, Yes Orientated to Time, Yes Orientated to Place, Yes Orientated to Person - Impulse Control Impulse Control: Tenuous - Insight and Judgement Insight and Judgement: Good - Group Participation Particating in Group Activities: No - Medication Management Medication Management Adherence: Yes - Additional Observations Comments: Rakesh appears sad. He is focused on feeling bad, and it is fairly clear he does feel bad emotionally, although he is feeling physically more well. There is a hint of a smile at times, but he is so distressed by his thoughts that it doesn't last long. He is compliant with medication advice and has stated he's feeling better with increased Ativan. He is hopeful about going to [facility] and plans to avail himself of the positive opportunities afforded him there. Assessment - Assessment Merits Inpatient Hospitalization: For Immediate Safety Inpatient DSM-V Dx: F41.0 Clinical Impression: Rakesh has major depressive disorder and panic disorder and agoraphobia. He is feeling more physically well and that means he comes out of his room more, but he remains unable to interact with others effectively. He comes in and out of his room throughout the day, mainly staying in bed. When asked how he is, he states "The brains are still shit." He is not improving psychiatrically, although he is safe on the unit. He interacts with individuals well, but struggles significantly with more than one or two people. Plan - Plan Treatment Plan: Name: RAKESH KENNEDY Birthdate: 1975 [id number] Medications: Current Medications Acetaminophen (Tylenol Tab*) 650 mg PO Q4H PRN PRN Reason: PAIN or TEMP > 101 F Al Hydrox/Mg Hydrox/Simethicone (Maalox Plus*) 30 ml PO Q4H PRN PRN Reason: INDIGESTION Buprenorphine/Naloxone (Suboxone 8-2 Mg Sl Tab*) 1 tab.sl SL BID [facility] Last Admin: 07/13/18 08:48 Dose: 1 tab.sl Clonidine HCl (Catapres Tab*) 0.1 mg PO BID [facility] Last Admin: 07/13/18 08:49 Dose: 0.1 mg Duloxetine HCl (Cymbalta Cap*) 120 mg PO DAILY [facility] Last Admin: 07/13/18 08:48 Dose: 120 mg Lorazepam (Ativan Tab(*)) 1 mg PO Q6H PRN PRN Reason: ANXIETY Last Admin: 07/13/18 15:06 Dose: 1 mg Melatonin (Melatonin) 6 mg PO BEDTIME PRN PRN Reason: INSOMNIA Mirtazapine (Remeron Tab*) 30 mg PO BEDTIME [facility] Last Admin: 07/12/18 20:14 Dose: 30 mg Multivitamins (Theragran Tab*) 1 tab PO DAILY [facility] Last Admin: 07/13/18 08:48 Dose: 1 tab Omeprazole (Prilosec Cap*) 20 mg PO BID@0730,1630 [facility] Last Admin: 07/13/18 16:55 Dose: 20 mg Ondansetron HCl (Zofran Odt Tab*) 4 mg PO Q6H PRN PRN Reason: NAUSEA Last Admin: 07/07/18 10:01 Dose: 4 mg Quetiapine Fumarate (Seroquel Tab*) 100 mg PO BEDTIME [facility] Last Admin: 07/12/18 20:15 Dose: 100 mg Quetiapine Fumarate (Seroquel Tab*) 50 mg PO BEDTIME [facility] Last Admin: 07/12/18 20:15 Dose: 50 mg Trazodone HCl (Desyrel Tab*) 50 mg PO BEDTIME PRN PRN Reason: SLEEP - Discharge Plan Discharge Plan: Inpatient Hospitalization Additional Comments: We are starting clonidine 0.1 mg twice daily to address panic and anxiety symptoms. As it stands, Rakesh is unable to tolerate most situations on the unit , including interacting with most people. He tends to isolate to an extreme which seems to have the effect of making him feel less anxious but more full of despair. We are looking into sending him to [facility] for a more rehabilitative approach, rather than the crisis approaches he has been receiving from the acute care hospitals he has been attending. Rakesh is agreeable to this choice and is encouraged that he might have a chance to feel better in the [place]. His discharge to [facility] has been delayed until Monday or Monday, but Rakehs handled the change well and continues to anticipate positive change.
[2018-07-13] MEDS: QUEtiapine TAB* 100 MG PO SCH (21:33)
[2018-07-13] MEDS: QUEtiapine TAB* 25 MG PO SCH (21:34)
[2018-07-13] MEDS: traZODone TAB* 50 MG TAB PO PRN (21:34)
[2018-07-13] MEDS: Mirtazapine TAB* 15 MG PO SCH (21:34)
[2018-07-14] MEDS: cloNIDine TAB* 0.1 MG PO SCH ×2 (09:13→20:12)
[2018-07-14] MEDS: Omeprazole CAP* 20 MG PO SCH ×2 (09:13→16:50)
[2018-07-14] MEDS: DULoxetine DR CAP* 60 MG CAP.DR PO SCH (09:13)
[2018-07-14] MEDS: Buprenorphine/Naloxone 8-2 MG SL TAB* 1 TAB SL SCH ×2 (09:14→20:11)
[2018-07-14] MEDS: Vitamin THERAPEUTIC TAB PO SCH (09:14)
[2018-07-14] MEDS: LORazepam TAB(*) 1 MG PO PRN ×3 (09:15→23:17)
[2018-07-14] MEDS: Melatonin 3 MG TAB PO PRN (20:11)
[2018-07-14] MEDS: QUEtiapine TAB* 100 MG PO SCH (20:11)
[2018-07-14] MEDS: QUEtiapine TAB* 25 MG PO SCH (20:12)
[2018-07-14] MEDS: Mirtazapine TAB* 15 MG PO SCH (20:12)
[2018-07-14] MEDS: traZODone TAB* 50 MG TAB PO PRN (20:13)
[2018-07-15] MEDS: Omeprazole CAP* 20 MG PO SCH ×2 (08:06→16:20)
[2018-07-15] MEDS: Buprenorphine/Naloxone 8-2 MG SL TAB* 1 TAB SL SCH ×2 (08:07→20:02)
[2018-07-15] MEDS: cloNIDine TAB* 0.1 MG PO SCH ×2 (08:07→20:06)
[2018-07-15] MEDS: DULoxetine DR CAP* 60 MG CAP.DR PO SCH (08:07)
[2018-07-15] MEDS: LORazepam TAB(*) 1 MG PO PRN ×2 (08:08→16:18)
[2018-07-15] MEDS: Vitamin THERAPEUTIC TAB PO SCH (08:08)
[2018-07-15] MEDS: QUEtiapine TAB* 25 MG PO SCH (20:06)
[2018-07-15] MEDS: Mirtazapine TAB* 15 MG PO SCH (20:06)
[2018-07-15] MEDS: QUEtiapine TAB* 100 MG PO SCH (20:06)
[2018-07-15] MEDS: Melatonin 3 MG TAB PO PRN (20:06)
[2018-07-15] MEDS: traZODone TAB* 50 MG TAB PO PRN (20:06)
[2018-07-16] MEDS: LORazepam TAB(*) 1 MG PO PRN ×2 (00:44→08:41)
[2018-07-16] MEDS: DULoxetine DR CAP* 60 MG CAP.DR PO SCH (08:40)
[2018-07-16] MEDS: Omeprazole CAP* 20 MG PO SCH (08:40)
[2018-07-16] MEDS: cloNIDine TAB* 0.1 MG PO SCH (08:40)
[2018-07-16] MEDS: Buprenorphine/Naloxone 8-2 MG SL TAB* 1 TAB SL SCH (08:40)
[2018-07-16] MEDS: Vitamin THERAPEUTIC TAB PO SCH (08:41)
[2018-07-16 08:49] VITALS: BP 123/85
[2018-07-16] MEDS ORDERED: LORazepam TAB(*) 1 MG PO ONE (10:46)
--- NOTE | 2018-07-17 03:26 | DS ---
CC: Dr. Gamez at [facility] * DISCHARGE SUMMARY: DATE OF ADMISSION: 07/05/18 DATE OF DISCHARGE: 07/16/18 PROVIDER: Cindy Quigley NP in Psychiatry. SUPERVISING PHYSICIAN: Dr. Alvaro Barajas.* (DICTATED BY CINDY QUIGLEY NP ) DIAGNOSES: [place] I: Major depressive disorder, panic disorder, generalized anxiety disorder. CONDITION AT THE TIME OF DISCHARGE: Somewhat improved, stable. Participated in very few groups and was slightly social with peers. He and his mom are agreeable to discharge to [facility]. He was ill here for while physically and then improved; he had esophagitis. He tolerated med changes well, and he will be discharged to [facility]. MENTAL STATUS EXAMINATION: At the time of discharge, Rakesh is calm perhaps due to 2 mg of Ativan and cooperative, and makes good eye contact. He is alert and oriented x3. Rakesh's grooming is adequate. His speech pace is normal. His thought processes are logical. He is not psychotic or delusional. He denies AH, VH, SI, and HI. His insight is good. His judgment is fair. He is willing to follow up. He is quite anxious. DISCHARGE INSTRUCTIONS TO THE PATIENT: A. Medication: He is on: 1. Suboxone 8-2 b.i.d. 2. Clonidine 0.1 b.i.d. 3. Cymbalta 120 mg daily. 4. Lorazepam 1 mg q.6 hours p.r.n. anxiety. 5. Melatonin 6 mg at bedtime. 6. Remeron 30 mg at bedtime. 7. Multivitamin daily. 8. Omeprazole 20 mg at 7:30 in the morning and 4:30 in the afternoon. 9. Zofran 4 mg p.o. q.6 hours p.r.n. nausea. 10. Seroquel 100 mg at bedtime and Seroquel 50 mg at bedtime. 11. Trazodone 50 mg at bedtime. B. Diet is regular, although we are guarded with his diet as he had esophagitis. C. Activities as tolerated. He is a nonsmoker and there are no studies pending at the time of discharge. D. Followup care: Includes going to [facility] where he can be evaluated and treated longer term. E. Substance abuse followup: Followup is not immediately indicated as he is already being treated for opioid addiction by taking Suboxone 8-2 mg. HOSPITAL COURSE: Part A: Chief Complaint: "Anxiety triggers everything, it would not stop, that is what is going on." The patient is a 42-year-old single white male with a history of high anxiety and depression, who arrives by his own father's car and is on a voluntary status following suicidal urges that are becoming stronger and he feels as though he cannot avoid them any longer. He has been wanting to act on his suicidal thoughts. He wants to jump off an [address] building. He wants to step out of the car. He feels like this exacerbation of symptoms has come out of the blue. He feels like he does not want to be around and he also does not want to feel that way, thus he does not want to live. When I ask him about his anxiety as he does not appear to be anxious, he states that it feels like impending doom and waiting for disaster. He states this has been going on since elementary school and that he was diagnosed at 20 with depression, anxiety, phobias, etc. He also endorses PTSD as he was bullied by teachers calling him stupid. He states that he graduated close to the top of his class. He cannot name his stressors. He does not know what has changed. He does endorse not leaving his house very much, at times not eating well because of his agoraphobia, not going to the grocery store. He is not sleeping well. He is not interested in anything. He feels guilt for not leaving up to the standards of his father. His energy is low. His appetite is poor. He also appears to have a stomach virus right now. Part B: Psychiatric treatment was rendered: The patient was admitted to the adult behavioral unit and placed on 15-minute checks for safety. Rakesh was ill with gastrointestinal distress during the first few days while he was here. He spent most of his time in bed even when his stomach issues were improved. He interacted slightly with peers. His roommate was somewhat problematic and that caused him to be tired as the door was left open much of the night and his roommate was singing constantly. It should be noted that Rakesh states his life was rich and full until a TBI five years ago. Since that time he has been very anxious and has found it incredibly difficult to function in the world. He did tolerate med changes including the addition of clonidine 0.1 b.i.d. and increase of Ativan from 0.5 to 1 mg, which did seem to have a positive effect. Most of meds from the home therefore were continued, nothing was discontinued. He is taking Seroquel primarily to help him sleep. His HA1c is 5.4, triglycerides are 61, cholesterol 169, LDL cholesterol 121, HDL cholesterol 36.3. It should be noted that his TSH is 3.75. I did phone his mother a few times. She is extremely anxious and worried about him. She is grateful that he is going to [facility]. She is delighted and happy that he will be taking care of. He is improved. He is remained highly anxious and he is unable to fully contract for safety in the outpatient world, thus continuing inpatient treatment at a state hospital level is warranted. CINDY QUIGLEY, SATNAM [id number]/CPS #: [id number] AUBRIE
== END 2018-07-16 11:40 | DRG 754 ==
LOC: ED 16:37 → BSU 07-05 05:28
PROVIDERS: ADMIT Psychiatry & Neurology Psychiatry; ATTEND Psychiatry & Neurology Psychiatry
DX: F32.9 Major depressive disorder, single episode, unspecified (principal); R45.851 Suicidal ideations; F41.0 Panic disorder [episodic paroxysmal anxiety]; F41.1 Generalized anxiety disorder; F43.10 Post-traumatic stress disorder, unspecified; M79.7 Fibromyalgia; M54.30 Sciatica, unspecified side; Z79.899 Other long term (current) drug therapy
CPT/HCPCS: 36415; 74177; 80053; 80061; 80307; 80320; 80329; 81003; 81015; 83036; 84443; 85025; 87077; 87086; 87186; 99222; 99231; 99232; 99233; 99238; 99284; A9270-GY; G0480; Q9967